=== PATIENT | male | born 1940 | race Caucasian/White ===

== ENCOUNTER → 2016-10-10 | Outpatient (CLI) | payer BC ==
[~2016-10-10] MED LIST: ACET-1325; ASPI-232 PO; FARXIGA PO; GLIM2TAB2 PO; HYDR12.55 PO; INSDGIPEN SC; LISI-790 PO; OFLO0.3S OP; PRED1SUS3; SIMV20TA2 PO; SITA50TA5 PO; ZNTT/150 PO
[2016-10-10 12:36] LABS: ESTIMATED AVERAGE GLUCOSE 163 mg/dl; HA1C FLAG Normal (Normal)
[2016-10-10 12:38] LABS: BLOOD UREA NITROGEN 23 mg/dl (7-18); BUN/CREATININE RATIO 25.4 (10-20); CALCIUM 9.6 mg/dl (8.5-10.1); CARBON DIOXIDE 25 mmol/L (21-32); CHLORIDE 100 mmol/L (98-107); CHOLESTEROL 131 mg/dl (0-200); CREATININE 0.89 mg/dl (0.60-1.40); GLUCOSE 159 mg/dl (70-99); POTASSIUM 4.3 mmol/L (3.5-5.1); SODIUM 133 mmol/L (136-145)
[2016-10-10 12:41] LABS: HDL CHOLESTEROL 33 mg/dl; LDL CHOLESTEROL CALCULATED 74 mg/dl; TRIGLYCERIDES 121 mg/dl (0-150); VERY LOW DENSITY LIPOPROT CALC 24 mg/dl
== END | disposition home or self-care (01) ==
LOC: C.LABPVFM 10:36
PROVIDERS: ATTEND Family Medicine
DX: E78.2 Mixed hyperlipidemia (principal); E11.9 Type 2 diabetes mellitus without complications

== ENCOUNTER → 2017-03-09 | Outpatient (CLI) | payer BC ==
[2017-03-09 17:33] LABS: BLOOD UREA NITROGEN 19 mg/dl (7-18); BUN/CREATININE RATIO 21.6 (10-20); CALCIUM 9.3 mg/dl (8.5-10.1); CARBON DIOXIDE 26 mmol/L (21-32); CHLORIDE 106 mmol/L (98-107); CREATININE 0.86 mg/dl (0.60-1.40); GLUCOSE 119 mg/dl (70-99); POTASSIUM 4.6 mmol/L (3.5-5.1); SODIUM 138 mmol/L (136-145)
[2017-03-10 05:51] LABS: ESTIMATED AVERAGE GLUCOSE 166 mg/dl; HA1C FLAG Normal (Normal)
== END | disposition home or self-care (01) ==
LOC: C.LABPVFM 11:30
PROVIDERS: ATTEND Family Medicine
DX: E11.9 Type 2 diabetes mellitus without complications (principal)

== ENCOUNTER 2017-03-15 02:57 | Observation (INO) | payer BC ==
[~2017-03-15] VITALS: Ht 185.4 cm; Wt 101.0 kg
[~2017-03-15 02:57] MED LIST changes: -ZNTT/150 PO
[2017-03-15 03:23] LABS: BASO % 0.8 %; BASO ABS # 0.06 K/uL (0-0.2); COMPLETE YES; EOS % 2.6 %; HEMATOCRIT 43.8 % (42-52); IG% 0.3 %; LYMPH % 29.5 %; LYMPH ABS # 2.25 K/uL (1.2-3.4); MEAN CORPUSCULAR HEMOGLOBIN 31.1 pg (25-34); MEAN CORPUSCULAR HGB CONC 34.9 g/dl (32-36); MEAN PLATELET VOLUME 10.8 fL (7.4-10.4); MONO % 11.9 %; NEUT % 54.9 %; PLATELET COUNT 187 K/uL (130-400); RED BLOOD COUNT 4.92 M/uL (4.7-6.1); WHITE BLOOD COUNT 7.62 K/uL (4.8-10.8)
[2017-03-15 03:45] LABS: ALKALINE PHOSPHATASE 60 U/L (45-117); ALT/SGPT 70 U/L (12-78); BLOOD UREA NITROGEN 24 mg/dl (7-18); CALCIUM 9.1 mg/dl (8.5-10.1); CARBON DIOXIDE 28 mmol/L (21-32); CHLORIDE 107 mmol/L (98-107); GLUCOSE 152 mg/dl (70-99)
[2017-03-15 04:14] LABS: AST/SGOT 115 U/L (15-37); BUN/CREATININE RATIO 24.8 (10-20); CREATININE 0.96 mg/dl (0.60-1.40); POTASSIUM 4.7 mmol/L (3.5-5.1); SODIUM 141 mmol/L (136-145)
--- NOTE | 2017-03-15 04:21 | EMERGENCY ROOM VISIT NOTE ---
History Report prepared by Jerryibzuleyma: Juaquin Alas Under the Supervision of: Dr. Marvin Delacruz D.O. First contact with patient: 02:59 Chief Complaint: CHEST PAIN Stated Complaint: CHEST PAIN History of Present Illness The patient is a 77 year old male who presents to the Emergency Room with complaints of resolved "sharp" left sided chest pain beginning just prior to arrival. Per EMS, the patient's pain began while sleeping. They state that the patient's pain was resolved with nitroglycerin. The patient states that his pain as a 10/10 in severity while present. He is not on any blood thinners. He states that he has an artificial heart valve that was placed three years ago. Source of History: patient Onset: Just prior to arrival Position: chest (left) Symptom Intensity: 10/10 while present Quality: sharp Timing: resolved Modifying Factors (Relieving): other (Nitroglycerin) Review of Systems See HPI for pertinent positives and negatives. A total of ten systems were reviewed and were otherwise negative. Past Medical & Surgical Medical Problems: (1) Aortic valvar stenosis Family History No pertinent family history stated. Social History Smoking Status: Never Smoker Marital Status: Occupation Status: retired Current/Historical Medications Scheduled Aspirin (Aspir-81), 81 MG PO QAM Glimepiride (Glimepiride), 2 MG PO BID Hydrochlorothiazide (Hydrochlorothiazide), 12.5 MG PO QAM Insulin Glargine (Lantus Solostar), 52 UNITS SC HS Lisinopril (Zestril), 5 MG PO QAM Simvastatin (Zocor), 20 MG PO QPM Sitagliptin-Metformin Hcl (Janumet), 1 TAB PO BID [Farxiga], 5 MG PO QAM Allergies Coded Allergies: No Known Allergies (Verified , `, 03/15/17) Physical Exam Vital Signs Date Time Temp Pulse Resp B/P (MAP) Pulse Ox O2 Delivery O2 Flow Rate FiO2 03/15/17 04:16 74 18 141/83 96 Room Air 03/15/17 03:04 77 03/15/17 03:01 36.7 82 18 151/75 96 Room Air Physical Exam GENERAL: Awake, alert, well-appearing, in no distress HENT: Normocephalic, atraumatic. Oropharynx unremarkable. EYES: Normal conjunctiva. Sclera non-icteric. NECK: Supple. No nuchal rigidity. FROM. No JVD. RESPIRATORY: Clear to auscultation. CARDIAC: Regular rate, normal rhythm. Extremities warm and well perfused. Pulses equal. ABDOMEN: Soft, non-distended. No tenderness to palpation. No rebound or guarding. No masses. RECTAL: Deferred. MUSCULOSKELETAL: Chest examination reveals no tenderness. Old sternotomy scar noted. The back is symmetrical on inspection without obvious abnormality. There is no CVA tenderness to palpation. No joint edema. LOWER EXTREMITIES: Calves are equal size bilaterally and non-tender. No edema. No discoloration. NEURO: Normal sensorium. No sensory or motor deficits noted. SKIN: No rash or jaundice noted. Medical Decision & Procedures ER Provider Diagnostic Interpretation: One View Chest X-ray interpreted by me: negative infiltrate. Negative pneumothorax. Laboratory Results 03/15/17 03:00 Red Blood Count 4.92, Mean Corpuscular Volume 89.0, Mean Corpuscular Hemoglobin 31.1, Mean Corpuscular Hemoglobin Concent 34.9, Mean Platelet Volume 10.8, Neutrophils (%) (Auto) 54.9, Lymphocytes (%) (Auto) 29.5, Monocytes (%) (Auto) 11.9, Eosinophils (%) (Auto) 2.6, Basophils (%) (Auto) 0.8, Neutrophils # (Auto ) 4.18, Lymphocytes # (Auto) 2.25, Monocytes # (Auto) 0.91, Eosinophils # (Auto ) 0.20, Basophils # (Auto) 0.06 03/15/17 03:00 Test 03/15/17 03:00 03/15/17 03:18 White Blood Count 7.62 K/uL (4.8-10.8) Red Blood Count 4.92 M/uL (4.7-6.1) Hemoglobin 15.3 g/dL (14.0-18.0) Hematocrit 43.8 % (42-52) Mean Corpuscular Volume 89.0 fL (80-100) Mean Corpuscular Hemoglobin 31.1 pg (25-34) Mean Corpuscular Hemoglobin Concent 34.9 g/dl (32-36) Platelet Count 187 K/uL (130-400) Mean Platelet Volume 10.8 fL (7.4-10.4) Neutrophils (%) (Auto) 54.9 % Lymphocytes (%) (Auto) 29.5 % Monocytes (%) (Auto) 11.9 % Eosinophils (%) (Auto) 2.6 % Basophils (%) (Auto) 0.8 % Neutrophils # (Auto) 4.18 K/uL (1.4-6.5) Lymphocytes # (Auto) 2.25 K/uL (1.2-3.4) Monocytes # (Auto) 0.91 K/uL (0.11-0.59) Eosinophils # (Auto) 0.20 K/uL (0-0.5) Basophils # (Auto) 0.06 K/uL (0-0.2) RDW Standard Deviation 41.2 fL (36.4-46.3) RDW Coefficient of Variation 12.7 % (11.5-14.5) Immature Granulocyte % (Auto) 0.3 % Immature Granulocyte # (Auto) 0.02 K/uL (0.00-0.02) Anion Gap 6.0 mmol/L (3-11) Est Creatinine Clear Calc Drug Dose 79.1 ml/min Estimated GFR () 87.4 Estimated GFR (Non- 75.4 BUN/Creatinine Ratio 24.8 (10-20) Calcium Level 9.1 mg/dl (8.5-10.1) Total Bilirubin 0.7 mg/dl (0.2-1) Direct Bilirubin mg/dl (0-0.2) Aspartate Amino Transf (AST/SGOT) 115 U/L (15-37) Alanine Aminotransferase (ALT/SGPT) 70 U/L (12-78) Alkaline Phosphatase 60 U/L (45-117) Total Protein 7.0 gm/dl (6.4-8.2) Albumin 3.5 gm/dl (3.4-5.0) Chemistry Specimen Hemolysis Bedside Troponin I < 0.030 ng/ml (0-0.045) Laboratory results reviewed by me ECG Indication: syncope Rate (beats per minute): 77 Rhythm: normal sinus Findings: RBBB, other (normal axis) ED Course 0300: The patient was evaluated in room B6. A complete history and physical exam was performed. 0242: Upon reexamination, the patient was resting comfortably. I discussed the test results and treatment plan with him. The patient will be evaluated for further management. Medical Decision Differential diagnosis: Etiologies such as cardiac ischemia, aortic dissection, pulmonary embolism, pneumonia, pneumothorax, musculoskeletal, infections, pericarditis, myocarditis , esophageal rupture, gastrointestinal, as well as others were entertained. Patient has a heart score of 3, patient received aspirin, case was discussed with hospitalist for admission. Patient remained stable condition with no current chest pain. I doubt thoracic aortic dissection or pulmonary embolism as presentation of his chest pain Consults Time Called: [phone] Consulting Physician: Dr. Puckett -[facility] [place] Returned Call: [phone] Discussed the patient's case. The patient will be evaluated for further treatment and disposition. Impression Primary Impression: Acute chest pain Scribe Attestation The scribe's documentation has been prepared under my direction and personally reviewed by me in its entirety. I confirm that the note above accurately reflects all work, treatment, procedures, and medical decision making performed by me. Departure Information Dispostion Being Evaluated By Hospitalist Referrals Aron Robles M.D. (PCP) Patient Instructions My [facility]
[2017-03-15] MEDS ORDERED: ALUMINUM/MAGNESIUM/SIMETH (MAALOX MAX) 30 ML UDC PO PRN (04:30)
[2017-03-15] MEDS ORDERED: MAGNESIUM HYDROXIDE SUSP 30 ML UDC PO PRN (04:30)
[2017-03-15] MEDS ORDERED: ZOLPIDEM TARTRATE 5 MG TAB PO PRN ×2 (04:30)
[2017-03-15] MEDS ORDERED: POLYETHYLENE (MIRALAX) 17 GM PACK PO PRN (04:30)
[2017-03-15] MEDS ORDERED: ACETAMINOPHEN 325 MG TAB PO PRN (04:30)
[2017-03-15] MEDS ORDERED: NITROGLYCERIN 0.4 MG SL PER TAB CHARGE SL PRN (04:30)
[2017-03-15] MEDS ORDERED: ONDANSETRON INJ 2 MG/ML 2 ML VIAL IV PRN (04:30)
--- NOTE | 2017-03-15 04:32 | History and Physical ---
History & Physical Date & Time of Service: Mar 15, 2017 at 04:13 Chief Complaint: Chest Pain Primary Care Physician: Aron Robles M.D. History of Present Illness Source: patient 77M with a PMHx of Aortic Valve Replacement 3 years ago, DM2 on insulin p/w a 20min episode of left sided chest pain that resolved in the ambulance on the way to the hospital after receiving ASA and nitro. Pt describes the pain as sharp and constant, no alleviated or made worse by any factors. The patient was not doing any activity when the pain came, he was just getting into bed. The pt has never had pain like this before. When solicited the pt feels that his may have been really severe heartburn because he was burning a lot immediately prior to this episode. The pt reports that the chest pain has completely resolved. ROS: No SOB, no dyspnea on exertion, no palpitations, no fevers, no chills, no nausea, no vomiting, no diarrhea, no dysuria, no rash. SHx: Non smoker, does not drink alcohol, denies any illicit substance use. Past Medical/Surgical History Medical Problems: (1) Aortic valvar stenosis Status: Chronic (2) Diabetes Mellitus (3) hypertension (4) hyperlipidemia Family History Noncontributory Social History Smoking Status: Never Smoker Smokeless Tobacco Use: No Alcohol Use: none Drug Use: none Marital Status: Housing status: lives with significant other Occupational Status: retired Immunizations History of Influenza Vaccine: Yes History of Tetanus Vaccine?: utd History of Pneumococcal: Yes History of Hepatitis B Vaccine: No Multi-Drug Resistant Organisms History of MDRO: No Allergies Coded Allergies: No Known Allergies (Verified , `, 03/15/17) Home Medications Scheduled Aspirin (Aspir-81), 81 MG PO QAM Glimepiride (Glimepiride), 2 MG PO BID Hydrochlorothiazide (Hydrochlorothiazide), 12.5 MG PO QAM Insulin Glargine (Lantus Solostar), 52 UNITS SC HS Lisinopril (Zestril), 5 MG PO QAM Ranitidine (Zantac), 150 MG PO BID Simvastatin (Zocor), 20 MG PO QPM Sitagliptin-Metformin Hcl (Janumet), 1 TAB PO BID [Farxiga], 5 MG PO QAM Review of Systems Constitutional: No fever, No chills Respiratory: No cough, No sputum, No wheezing, No shortness of breath, No dyspnea on exertion Cardiovascular: + chest pain Abdomen: No pain, No nausea, No vomiting, No diarrhea, No constipation Musculoskeletal: No joint pain Genitourinary - Male: No hematuria, No dysuria Endocrine: No fatigue Integumentary: No rash Physical Exam Vital Signs Date Time Temp Pulse Resp B/P (MAP) Pulse Ox O2 Delivery O2 Flow Rate FiO2 03/15/17 03:04 77 03/15/17 03:01 36.7 82 18 151/75 96 Room Air General Appearance: WD/WN, no apparent distress Eyes: PERRL, EOMI Respiratory/Chest: chest non-tender, lungs clear, normal breath sounds, no respiratory distress, no accessory muscle use Cardiovascular: regular rate, rhythm, no edema, no gallop, no JVD, normal peripheral pulses, + pertinent finding (systolic murmur) Abdomen/GI: normal bowel sounds, non tender, soft, no organomegaly, no pulsatile mass, + pertinent finding (cat scratch on abdomen) Back: no CVA tenderness Extremities/Musculoskelatal: normal inspection, no calf tenderness, normal capillary refill, no pedal edema Neurologic/Psych: grief counsellor II-XII nml as tested, alert, normal mood/affect, normal reflexes, oriented x 3 Skin: no rash Diagnostics Laboratory Results Results Past 24 Hours Test 03/15/17 03:00 03/15/17 03:18 Range/Units White Blood Count 7.62 4.8-10.8 K/uL Red Blood Count 4.92 4.7-6.1 M/uL Hemoglobin 15.3 14.0-18.0 g/dL Hematocrit 43.8 42-52 % Mean Corpuscular Volume 89.0 80-100 fL Mean Corpuscular Hemoglobin 31.1 25-34 pg Mean Corpuscular Hemoglobin Concent 34.9 32-36 g/dl Platelet Count 187 130-400 K/uL Mean Platelet Volume 10.8 7.4-10.4 fL Neutrophils (%) (Auto) 54.9 % Lymphocytes (%) (Auto) 29.5 % Monocytes (%) (Auto) 11.9 % Eosinophils (%) (Auto) 2.6 % Basophils (%) (Auto) 0.8 % Neutrophils # (Auto) 4.18 1.4-6.5 K/uL Lymphocytes # (Auto) 2.25 1.2-3.4 K/uL Monocytes # (Auto) 0.91 0.11-0.59 K/uL Eosinophils # (Auto) 0.20 0-0.5 K/uL Basophils # (Auto) 0.06 0-0.2 K/uL RDW Standard Deviation 41.2 36.4-46.3 fL RDW Coefficient of Variation 12.7 11.5-14.5 % Immature Granulocyte % (Auto) 0.3 % Immature Granulocyte # (Auto) 0.02 0.00-0.02 K/uL Sodium Level 140 136-145 mmol/L Chloride Level 107 98-107 mmol/L Carbon Dioxide Level 28 21-32 mmol/L Anion Gap 5.0 3-11 mmol/L Blood Urea Nitrogen 24 7-18 mg/dl BUN/Creatinine Ratio 23.8 10-20 Random Glucose 152 70-99 mg/dl Calcium Level 9.1 8.5-10.1 mg/dl Total Bilirubin 0.7 0.2-1 mg/dl Alanine Aminotransferase (ALT/SGPT) 70 12-78 U/L Alkaline Phosphatase 60 45-117 U/L Total Protein 7.0 6.4-8.2 gm/dl Albumin 3.5 3.4-5.0 gm/dl Bedside Troponin I < 0.030 0-0.045 ng/ml CXR normal EKG Rate (beats per minute): 77 Rhythm: normal sinus Findings: RBBB, other (normal axis) Impression Assessment and Plan 77M with a PMHx of Aortic Valve Replacement 3 years ago, DM2 on insulin p/w a 20min episode of left sided chest pain that resolved in the ambulance on the way to the hospital after receiving ASA and nitro. Echo ordered, Trops will be trended, observation on telemetry, cardiology (Dr. Grewal) consulted. Neuro: AAOx3, Pain control with Tylenol PRN. CV - Chest Pain * Symptoms have dissipated. * EKG showed RBBB. * Trop neg x 1. * Will order echo, appreciate cardiology recommendations, and trend troponins. Aortic Valve Replacement / HTN * continue with Acetazolamide, ASA, HCTZ 12.5mg daily, Lisinopril 5mg daily, Zocor 20mg QPM * Trend Troponins, CKMB, CK Q6H. * EKG AM daily. Resp - X-ray results showed no acute process. Renal - Creatinine Pending. GI/Diet - DM2 diet Endo - * DM2 - Hold oral DM2 meds, ISS + carb counting. * Electrolytes: Pending Heme - * Hgb and Platelets WNL. * DVT Proph: Hep SQ BID ID - Afebrile, WBC count normal. Continue to monitor with CBCs. Full Code Attending Addendum: I have physically seen and examined this patient, have supervised the medical residents activities, and agree with the H&P as noted above with the following exceptions: NONE The patient is awake, well-developed and adequately nourished, alert and oriented 3, normocephalic and atraumatic, lying in bed and in no acute distress. HEENT--PERRL, EOMI, mucous membranes and oropharynx normal. Neck--supple, no JVD or bruits, thyroid normal, trachea midline, no adenopathy. Heart--normal S1 and S2, no extra beats. Systolic murmur. No rubs or gallops. Lungs--clear bilaterally with good air movement, no respiratory distress, no accessory muscle use. Abdomen--normal bowel sounds and soft, nontender and nondistended, no hernias or masses, no organomegaly. Extremities--no cyanosis, clubbing or edema. There are good distal pulses b/l. Dermatologic--normal skin turgor, normal color, warm and dry, no abnormal lymph nodes, no rash. Neurologic--cranial nerves II through XII grossly intact. Rheumatologic--normal range of motion, nontender, muscles and joints. Psychiatric--normal affect. Assessment and Plan: 1. Status post aortic valve replacement/hypertension/precordial chest pain/ right bundle-branch block--The patient will be admitted to telemetry for serial cardiac enzymes, cardiac rhythm monitoring and a 2-D echocardiogram with Dopplers. Continue aspirin 81 mg by mouth every morning, HCTZ 12.5 mg by mouth every morning, lisinopril 5 mg by mouth every morning. Next 2. Diabetes mellitus--hold glimepiride 2 mg by mouth twice a day, and Janumet. Continue Lantus 52 units subcutaneous at bedtime. Place on Accu-Cheks before meals and at bedtime with NovoLog coverage per scale. 3. Hyperlipidemia--continue simvastatin 20 g by mouth every evening. Level of Care Telemetry Advanced Directives Existing Advance Directive: No Existing Living Will: No Existing Power of Senior Research Analyst: No Resuscitation Status FULL RESUSCITATION VTE Prophylaxis Given or contraindicated: SCD's Social Service Consult None Apply Resident Involvement: Resident Care Provided Care Provided: Adult Hospital Medicine
[2017-03-15 05:30] VITALS: BP 138/86; PULSE 58; TEMP 36.4; O2SAT 97; Ht 185.4 cm; Wt 101.0 kg
--- NOTE | 2017-03-15 05:59 | DIAGNOSTIC IMAGING REPORT ---
CHEST ONE VIEW PORTABLE CLINICAL HISTORY: CHEST PAIN dyspnea COMPARISON STUDY: 09/30/2013 FINDINGS: Interval median sternotomy. Minimal parenchymal infiltrative change left base. Lungs otherwise appear clear. Diaphragms are smooth. IMPRESSION: Minimal parenchymal infiltrate left base. The above report was generated using voice recognition software. It may contain grammatical, syntax or spelling errors. Electronically signed by: James Alvarado M.D. 03/15/2017 5:57 AM Dictated Date/Time: 03/15/2017 5:57 AM
[2017-03-15] MEDS ORDERED: IV FLUIDS COMPLETED PRN (06:45)
[2017-03-15] MEDS ORDERED: PERFLUTREN LIPID MICROSPHERE (DEFINITY) IV ONE (07:34)
[2017-03-15 07:47] LABS: INR 1.1 (0.9-1.1); PROTHROMBIN TIME (PATIENT) 11.3 SECONDS (9.0-12.0)
[2017-03-15 07:49] VITALS: BP 130/71; PULSE 66; TEMP 36.5; O2SAT 95
[2017-03-15 08:00] VITALS: O2SAT 95
[2017-03-15 08:20] LABS: CKMB/CK RATIO 2.3 (0-3.0)
[2017-03-15] MEDS ORDERED: ASPIRIN 81 MG ECTAB PO SCH (09:00)
[2017-03-15] MEDS ORDERED: HEPARIN SOD 5000 UNIT/0.5 ML CARP SQ SCH (09:00)
[2017-03-15] MEDS ORDERED: PANTOprazole SOD 40 MG TAB PO SCH (09:00)
[2017-03-15] MEDS ORDERED: LISINOPRIL 5 MG TAB PO SCH (09:00)
[2017-03-15] MEDS ORDERED: HYDROCHLOROTHIAZIDE 25 MG TAB PO SCH (09:00)
--- NOTE | 2017-03-15 10:17 | ECHOCARDIOGRAM REPORT ---
*NOTICE TO RECEIVING CONSTITUTION PARTY AGENCY This information is strictly Confidential and protected under [place] law. [place] law prohibits you from making any further disclosure of this information unless further disclosure is expressly permitted by the written consent of the person to whom it pertains or is authorized by law. A general authorization for the release of medical or other information is not sufficient for this purpose. Hospital accepts no responsibility if the information is made available to any other person, INCLUDING THE PATIENT. Interpretation Summary * Name: BRANDON MORALES Study Date: 03/15/2017 06:49 AM BP: 138/86 mmHg * Patient Location: C.2T\S\S238\S\1 HR: 66 * : 1940 (M/d/yyyy) Gender: Male Height: 73 in * Age: 77 yrs Ethnicity: CA Weight: 221 lb * Ordering Physician: James Puckett * Referring Physician: Self, Referred * Performed By: Fahad Cash RDCS * * Reason For Study: Chest pain * BSA: 2.2 m2 * -- Conclusions -- * There is mild concentric left ventricular hypertrophy. * Left ventricular systolic function is normal. * Grade I diastolic dysfunction, (abnormal relaxation pattern). * The left atrium is mildly dilated. * There is a bioprosthetic aortic valve. * The gradient is normal for this prosthetic aortic valve. * Right ventricular systolic pressure is normal. Procedure Details * A complete two-dimensional transthoracic echocardiogram was performed (2D, M-mode, Doppler and color flow Doppler). * The study was technically difficult. * The study was technically difficult, but visualization was adequate with the administration of Definity ultrasound contrast. * A contrast injection of Definity was performed to improve assessment of LV function. * Contrast was injected into an intravenous site in the left arm. * One vial of Definity ultrasound contrast was diluted in normal saline to a total volume of 10 ml. A total of '4' ml of solution was administered during imaging. * Lot # [id number] of Definity utilized for procedure. * Expiration date 1AUG18. * The attending nurse who injected the contrast agent was ANTHONY Mack. Left Ventricle * The left ventricle is normal in size. * There is mild concentric left ventricular hypertrophy. * Left ventricular systolic function is normal. * Grade I diastolic dysfunction, (abnormal relaxation pattern). * The left ventricular wall motion is normal. * No regional wall motion abnormalities noted. Right Ventricle * The right ventricle is normal in size and function. Atria * The left atrium is mildly dilated. * Right atrial size is normal. Mitral Valve * The mitral valve leaflets appear thickened, but open well. * There is no mitral valve stenosis. * There is no mitral regurgitation noted. Tricuspid Valve * The tricuspid valve anatomy is normal. * There is trace tricuspid regurgitation. * Right ventricular systolic pressure is normal. Aortic Valve * No hemodynamically significant valvular aortic stenosis. * There is no significant aortic regurgitation. * There is a bioprosthetic aortic valve. * The gradient is normal for this prosthetic aortic valve. * 23mm pericardial tissue valve Great Vessels * The aortic root is normal size. Pericardium/Pleural * There is no pericardial effusion. MMode 2D Measurements and Calculations IVSd 1.3 cm IVSs 1.6 cm LVIDd 3.6 cm LVIDs 2.5 cm LVPWd 1.3 cm LVPWs 1.6 cm IVS/LVPW 1.0 FS 30.1 % EDV(Teich) 55.4 ml ESV(Teich) 23.1 ml EF(Teich) 58.4 % EDV(cubed) 47.7 ml ESV(cubed) 16.3 ml EF(cubed) 65.9 % % IVS thick 19.6 % % LVPW thick 23.3 % LV mass(C)d 166.3 grams LV mass(C)dI 74.1 grams/m\S\2 LV mass(C)s 144.9 grams LV mass(C)sI 64.5 grams/m\S\2 SV(Teich) 32.3 ml SI(Teich) 14.4 ml/m\S\2 SV(cubed) 31.5 ml SI(cubed) 14.0 ml/m\S\2 EPSS 1.6 cm Ao root diam 3.9 cm Ao root area 12.1 cm\S\2 ACS 2.0 cm LA dimension 4.4 cm asc Aorta Diam 3.2 cm LA/Ao 1.1 LVOT diam 2.2 cm LVOT area 3.8 cm\S\2 LVAd ap4 20.7 cm\S\2 LVLd ap4 6.9 cm EDV(MOD-sp4) 50.3 ml LVAs ap4 13.5 cm\S\2 LVLs ap4 6.6 cm ESV(MOD-sp4) 23.0 ml EF(MOD-sp4) 54.3 % LVAd ap2 26.1 cm\S\2 LVLd ap2 8.6 cm EDV(MOD-sp2) 63.9 ml LVAs ap2 16.6 cm\S\2 LVLs ap2 7.6 cm ESV(MOD-sp2) 29.3 ml EF(MOD-sp2) 54.1 % SV(MOD-sp4) 27.3 ml SI(MOD-sp4) 12.2 ml/m\S\2 SV(MOD-sp2) 34.6 ml SI(MOD-sp2) 15.4 ml/m\S\2 Doppler Measurements and Calculations MV E max jarett 108.3 cm/sec MV A max jarett 123.0 cm/sec MV E/A 0.88 MV V2 max 127.6 cm/sec MV max PG 6.5 mmHg MV V2 mean 74.5 cm/sec MV mean PG 2.6 mmHg MV V2 VTI 48.0 cm MVA(VTI) 1.8 cm\S\2 MV dec time 0.25 sec Ao V2 max 209.9 cm/sec Ao max PG 17.6 mmHg Ao max PG (full) 13.2 mmHg Ao V2 mean 142.5 cm/sec Ao mean PG 9.4 mmHg Ao mean PG (full) 7.3 mmHg Ao V2 VTI 44.7 cm JN(I,A) 1.9 cm\S\2 JN(I,D) 1.9 cm\S\2 JN(V,A) 1.9 cm\S\2 JN(V,D) 1.9 cm\S\2 LV V1 max PG 4.5 mmHg LV V1 mean PG 2.1 mmHg LV V1 max 105.5 cm/sec LV V1 mean 66.8 cm/sec LV V1 VTI 22.4 cm SV(Ao) 541.4 ml SI(Ao) 241.2 ml/m\S\2 SV(LVOT) 86.0 ml SI(LVOT) 38.3 ml/m\S\2 PA V2 max 105.1 cm/sec PA max PG 4.4 mmHg PA acc slope 272.3 cm/sec\S\2 PA acc time 0.15 sec TR max jarett 240.3 cm/sec PA pr(Accel) 10.9 mmHg
[2017-03-15 11:40] VITALS: BP 120/74; PULSE 71; TEMP 36.5; O2SAT 96
[2017-03-15] MEDS ORDERED: ZNTT/150 PO (12:43)
--- NOTE | 2017-03-15 12:47 | Discharge Instructions ---
Discharge Instructions Date of Service Mar 15, 2017. Admission Reason for Admission: Acute Chest Pain Discharge Discharge Diagnosis / Problem: Chest pain Discharge Goals Goal(s): Diagnostic testing Activity Recommendations Activity Limitations: resume your previous activity Lifting Limitations: none Exercise/Sports Limitations: none May Resume Sexual Activity: when tolerated Shower/Bathe: no limitations Driving or Machine Use: resume 1 day after discharge . Instructions / Follow-Up Instructions / Follow-Up Take your Ranitidine (Zantac) twice daily rather than as needed until seen by Dr. Londono Return to the emergency room if you have further chest pain Do not eat 4 hours before bedtime Avoid spicey foods Avoid alcohol consumption Current Hospital Diet Patient's current hospital diet: Diabetes Type 2 Diet Discharge Diet Recommended Diet: AHA Diet (Heart Healthy), Diabetes Type 2 Diet Fluid Restriction: None Procedures Procedures Performed: None Pending Studies Studies pending at discharge: no Laboratory Results Hemoglobin A1c Test 03/09/17 11:35 Range/Units Estimated Average Glucose 166 mg/dl Hemoglobin A1c 7.4 H 4.5-5.6 % Medical Emergencies . Who to Call and When: Medical Emergencies: If at any time you feel your situation is an emergency, please call 911 immediately. . Non-Emergent Contact Non-Emergency issues call your: Primary Care Provider Call Non-Emergent contact if: you have a fever, your pain is unusual for you, your pain is concerning you, you have any medication questions . . "Provider Documentation" section prepared by Elvin Rowan. . VTE Core Measure Inpt VTE Proph given/why not?: Akilah PALOMARES Drug Monitoring Program Search Results: no issues identified
[2017-03-15 13:02] VITALS: BP 120/74; PULSE 71; TEMP 36.5; O2SAT 96
--- NOTE | 2017-03-15 13:08 | Discharge Summary ---
Discharge Summary Date of Service Mar 15, 2017. (Elvin Rowan PA-C) Discharge Summary Admission Date: Mar 15, 2017 at 04:24 Discharge Date: Mar 15, 2017 Discharge Disposition: Home Principal Diagnosis: Acute chest pain Problems/Secondary Diagnoses: Probable GERD Immunizations: Have You Had Influenza Vaccine: Yes History of Tetanus Vaccine?: utd History of Pneumococcal: Yes History of Hepatitis B Vaccine: No Procedures: None Consultations: None (Elvin Rowan PA-C) Medication Reconciliation New Medications: Ranitidine (Zantac) 150 Mg Tab 150 MG PO BID for 30 Days, #60 TAB Take twice daily Continued Medications: Aspirin (Aspir-81) 81 Mg Tab 81 MG PO QAM Glimepiride (Glimepiride) 2 Mg Tab 2 MG PO BID Hydrochlorothiazide (Hydrochlorothiazide) 12.5 Mg Tab 12.5 MG PO QAM Insulin Glargine (Lantus Solostar) 100 Unit/Ml Inj 52 UNITS SC HS Lisinopril (Zestril) 5 Mg Tab 5 MG PO QAM Simvastatin (Zocor) 20 Mg Tab 20 MG PO QPM, TAB Sitagliptin-Metformin Hcl (Janumet) 1 Tab Tab 1 TAB PO BID for 90 Days, #180 TAB 3 Refills [Farxiga] () 5 MG PO QAM Referrals At Discharge Follow up Referrals: Family Practice Referral - Within 1-2 Weeks @ [facility] [place]Department of Medicine with Dr. Londono Discharge Exam Vital Signs - as noted below Laboratory Data - as noted below Physical Exam: General - NAD Eyes - No icterus, gaze conjugate ENT - Mucosa moist, no lesions or candidiasis Neck - Supple, No JVD Lungs - No bronchospasm, rales, or rhonchi. No crepitus Heart - Regular, rate controlled Chest - Bowel sounds in the mid chest region. No tenderness to palpation. No ecchymosis. No paradoxical chest wall movement. Abdomen - Soft, NT, ND, BS present Extremities - No edema, pedal pulses intact. No calf pain. No varices. Neuro - A&OX3 Review of Systems: Constitutional: No fever, No chills, No sweats Respiratory: No cough, No sputum, No wheezing, No shortness of breath, No dyspnea on exertion, No dyspnea at rest, No hemoptysis Cardiovascular: No chest pain (since admission) Abdomen: + problem reported (increased belching), No pain, No nausea, No vomiting Musculoskeletal: No joint pain, No muscle pain Genitourinary - Male: No hematuria, No dysuria Neurologic: No weakness, No numbness/tingling, No vertigo Psychiatric: No problem reported Endocrine: No fatigue, No excessive thirst, No excessive urination Hematologic / Lymphatic: No abnormal bleeding/bruising, No clotting problems , No swollen lymph nodes, No night sweats Integumentary: No rash, No itch (Elvin Rowan PA-C) Hospital Course Patient admitted to the telemetry unit for observation secondary to acute chest pain. The patient reported having midsternal chest pain shortly after lying down for bed last evening. He reports eating a banana shortly before retiring for the night. He reports somewhat frequent acid reflux that is relieved with Tums or Zantac which he takes only as needed. Since arrival he has had no further chest pain or tightness. He denies n/v/d. He denies fever or chills. He tolerated breakfast this morning without difficulty or symptoms. He follows regularly with Dr. Grewal from [facility] [place] Cardiology and just had has regular appointment 2 weeks ago. He also foolows with Dr. Londono at [facility] and just had his annual appointment last week. During the patient's admission, he had no arrhythmias on telemetry, EKG was unchanged from prior and had no ST changes. Cardiac enzymes were negative. All other labs were reviewed and were negative. Patient will be discharged home and started on scheduled Ranitidine (Zantac) 150mg twice daily until further evaluated as an outpatient. I will leave this workup to Dr. Londono as he is familiar with Mr. Dockery. All other home medications were continued per his outpatient instructions. History & Physical Date & Time of Service: Mar 15, 2017 at 04:13 Chief Complaint: Chest Pain Primary Care Physician: Aron Robles M.D. History of Present Illness Source: patient 77M with a PMHx of Aortic Valve Replacement 3 years ago, DM2 on insulin p/w a 20min episode of left sided chest pain that resolved in the ambulance on the way to the hospital after receiving ASA and nitro. Pt describes the pain as sharp and constant, no alleviated or made worse by any factors. The patient was not doing any activity when the pain came, he was just getting into bed. The pt has never had pain like this before. When solicited the pt feels that his may have been really severe heartburn because he was burning a lot immediately prior to this episode. The pt reports that the chest pain has completely resolved. ROS: No SOB, no dyspnea on exertion, no palpitations, no fevers, no chills, no nausea, no vomiting, no diarrhea, no dysuria, no rash. SHx: Non smoker, does not drink alcohol, denies any illicit substance use. Past Medical/Surgical History Medical Problems: (1) Aortic valvar stenosis Status: Chronic Social History Smoking Status: Never Smoker Marital Status: Occupational Status: retired Immunizations History of Influenza Vaccine: Yes History of Tetanus Vaccine?: utd History of Pneumococcal: Yes History of Hepatitis B Vaccine: No Multi-Drug Resistant Organisms History of MDRO: No Allergies Coded Allergies: No Known Allergies (Verified , `, 04/16/16) Home Medications Scheduled Aspirin (Aspir-81), 81 MG PO QAM Glimepiride (Glimepiride), 2 MG PO BID Hydrochlorothiazide (Hydrochlorothiazide), 12.5 MG PO QAM Insulin Glargine (Lantus Solostar), 52 UNITS SC HS Lisinopril (Zestril), 5 MG PO QAM Simvastatin (Zocor), 20 MG PO QPM Sitagliptin-Metformin Hcl (Janumet), 1 TAB PO BID [Farxiga], 5 MG PO QAM Review of Systems Constitutional: No fever, No chills Respiratory: No cough, No sputum, No wheezing, No shortness of breath, No dyspnea on exertion Cardiovascular: + chest pain Abdomen: No pain, No nausea, No vomiting, No diarrhea, No constipation Musculoskeletal: No joint pain Genitourinary - Male: No hematuria, No dysuria Endocrine: No fatigue Integumentary: No rash Physical Exam Vital Signs Date Time Temp Pulse Resp B/P (MAP) Pulse Ox O2 Delivery O2 Flow Rate FiO2 03/15/17 03:04 77 03/15/17 03:01 36.7 82 18 151/75 96 Room Air General Appearance: WD/WN, no apparent distress Eyes: PERRL, EOMI Respiratory/Chest: chest non-tender, lungs clear, normal breath sounds, no respiratory distress, no accessory muscle use, + pertinent finding (midline scar over sternum, ) Cardiovascular: regular rate, rhythm, no edema, no gallop, no JVD, normal peripheral pulses, + pertinent finding (systolic murmur) Abdomen/GI: normal bowel sounds, non tender, soft, no organomegaly, no pulsatile mass, + pertinent finding (cat scratch on abdomen) Back: no CVA tenderness Extremities/Musculoskelatal: normal inspection, no calf tenderness, normal capillary refill, no pedal edema Neurologic/Psych: 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, alert, normal mood/affect, normal reflexes, oriented x 3 Skin: no rash Diagnostics Laboratory Results Results Past 24 Hours Test 03/15/17 03:00 03/15/17 03:18 Range/Units White Blood Count 7.62 4.8-10.8 K/uL Red Blood Count 4.92 4.7-6.1 M/uL Hemoglobin 15.3 14.0-18.0 g/dL Hematocrit 43.8 42-52 % Mean Corpuscular Volume 89.0 80-100 fL Mean Corpuscular Hemoglobin 31.1 25-34 pg Mean Corpuscular Hemoglobin Concent 34.9 32-36 g/dl Platelet Count 187 130-400 K/uL Mean Platelet Volume 10.8 7.4-10.4 fL Neutrophils (%) (Auto) 54.9 % Lymphocytes (%) (Auto) 29.5 % Monocytes (%) (Auto) 11.9 % Eosinophils (%) (Auto) 2.6 % Basophils (%) (Auto) 0.8 % Neutrophils # (Auto) 4.18 1.4-6.5 K/uL Lymphocytes # (Auto) 2.25 1.2-3.4 K/uL Monocytes # (Auto) 0.91 0.11-0.59 K/uL Eosinophils # (Auto) 0.20 0-0.5 K/uL Basophils # (Auto) 0.06 0-0.2 K/uL RDW Standard Deviation 41.2 36.4-46.3 fL RDW Coefficient of Variation 12.7 11.5-14.5 % Immature Granulocyte % (Auto) 0.3 % Immature Granulocyte # (Auto) 0.02 0.00-0.02 K/uL Sodium Level 140 136-145 mmol/L Chloride Level 107 98-107 mmol/L Carbon Dioxide Level 28 21-32 mmol/L Anion Gap 5.0 3-11 mmol/L Blood Urea Nitrogen 24 7-18 mg/dl BUN/Creatinine Ratio 23.8 10-20 Random Glucose 152 70-99 mg/dl Calcium Level 9.1 8.5-10.1 mg/dl Total Bilirubin 0.7 0.2-1 mg/dl Alanine Aminotransferase (ALT/SGPT) 70 12-78 U/L Alkaline Phosphatase 60 45-117 U/L Total Protein 7.0 6.4-8.2 gm/dl Albumin 3.5 3.4-5.0 gm/dl Bedside Troponin I < 0.030 0-0.045 ng/ml CXR normal EKG Rate (beats per minute): 77 Rhythm: normal sinus Findings: RBBB, other (normal axis) Impression Assessment and Plan 77M with a PMHx of Aortic Valve Replacement 3 years ago, DM2 on insulin p/w a 20min episode of left sided chest pain that resolved in the ambulance on the way to the hospital after receiving ASA and nitro. Echo ordered, Trops will be trended, observation on telemetry, cardiology (Dr. Grewal) consulted. Neuro: AAOx3, Pain control with Tylenol PRN. CV - Chest Pain * Symptoms have dissipated. * EKG showed RBBB. * Trop neg x 1. * Will order echo, appreciate cardiology recommendations, and trend troponins. Aortic Valve Replacement / HTN * continue with Acetazolamide, ASA, HCTZ 12.5mg daily, Lisinopril 5mg daily, Zocor 20mg QPM * Trend Troponins, CKMB, CK Q6H. * EKG AM daily. Resp - X-ray results showed no acute process. Renal - Creatinine Pending. GI/Diet - DM2 diet Endo - * DM2 - Hold oral DM2 meds, ISS + carb counting. * Electrolytes: Pending Heme - * Hgb and Platelets WNL. * DVT Proph: Hep SQ BID ID - Afebrile, WBC count normal. Continue to monitor with CBCs. Full Code Resident Involvement: Resident Care Provided Care Provided: Adult Hospital Medicine <Electronically signed by James Puckett MD> Signed: 03/15/17 9782 Total Time Spent: Greater than 30 minutes This includes examination of the patient, discharge planning, medication reconciliation, and communication with other providers. (Elvin Rowan PA-C) I agree with PA assessment and plan and have seen and examined pt myself Resting comfortably in bed Trop x 2 neg VSS Labs reviewed No ischemic changes on EKG Pt denies any further CP Likely atypical CP, with start on zantac on discharge F/U with PCP (Monroe Reardon D.OPasquale) Discharge Instructions Please refer to the electronic Patient Visit Report (Discharge Instructions) for additional information. (Elvin Rowan PA-C)
[2017-03-15] MEDS ORDERED: INSULIN GLARGINE SOLOSTAR 100 UNITS/ML 3 ML PEN SC SCH (21:00)
[2017-03-15] MEDS ORDERED: SIMVASTATIN 20 MG TAB PO SCH (21:00)
== END 2017-03-15 13:35 | disposition home or self-care (01) ==
LOC: EDBD 02:57 → C.EDB 02:58 → C.2T 04:24 → ENRESERV 05:06
PROVIDERS: ADMIT Hospitalist; ATTEND Hospitalist
DX: I35.8 Other nonrheumatic aortic valve disorders (principal); Z79.82 Long term (current) use of aspirin; E11.9 Type 2 diabetes mellitus without complications; Z79.4 Long term (current) use of insulin; Z79.84 Long term (current) use of oral hypoglycemic drugs; I10 Essential (primary) hypertension; E78.5 Hyperlipidemia, unspecified

== ENCOUNTER → 2017-09-07 | Outpatient (CLI) | payer BC ==
[~2017-09-07] MED LIST changes: -ACET-1325; -OFLO0.3S OP; -PRED1SUS3; +ZNTT/150 PO
[2017-09-07 12:27] LABS: HEMATOCRIT 46.4 % (42-52); HEMOGLOBIN 15.9 g/dL (14.0-18.0); MEAN CELL VOLUME 89.9 fL (80-100); MEAN CORPUSCULAR HEMOGLOBIN 30.8 pg (25-34); MEAN CORPUSCULAR HGB CONC 34.3 g/dl (32-36); MEAN PLATELET VOLUME 11.4 fL (7.4-10.4); PLATELET COUNT 212 K/uL (130-400); RED CELL DISTRIBUTION WIDTH CV 12.7 % (11.5-14.5); RED CELL DISTRIBUTION WIDTH SD 41.3 fL (36.4-46.3); WHITE BLOOD COUNT 7.14 K/uL (4.8-10.8)
[2017-09-07 12:42] LABS: HEMOGLOBIN A1C 7.4 % (4.5-5.6)
[2017-09-07 12:57] LABS: ALBUMIN 3.7 gm/dl (3.4-5.0); ALT/SGPT 26 U/L (12-78); AST/SGOT 15 U/L (15-37); BLOOD UREA NITROGEN 15 mg/dl (7-18); CALCIUM 8.8 mg/dl (8.5-10.1); CARBON DIOXIDE 28 mmol/L (21-32); CREATININE 0.93 mg/dl (0.60-1.40); GLUCOSE 156 mg/dl (70-99); POTASSIUM 4.6 mmol/L (3.5-5.1); SODIUM 135 mmol/L (136-145)
[2017-09-07 12:59] LABS: ALKALINE PHOSPHATASE 41 U/L (45-117); CHOLESTEROL 114 mg/dl (0-200); LDL CHOLESTEROL CALCULATED 59 mg/dl; TOTAL PROTEIN 7.4 gm/dl (6.4-8.2)
== END | disposition home or self-care (01) ==
LOC: C.LABPVFM 17:44
PROVIDERS: ATTEND Family Medicine
DX: R12 Heartburn (principal)

== ENCOUNTER → 2018-03-11 | Outpatient (CLI) | payer BC ==
[~2018-03-11] MED LIST changes: +RANI150T85 PO; -ZNTT/150 PO
[2018-03-11 13:16] LABS: ALBUMIN 3.6 gm/dl (3.4-5.0); ALKALINE PHOSPHATASE 54 U/L (45-117); ALT/SGPT 25 U/L (12-78); AST/SGOT 13 U/L (15-37); BLOOD UREA NITROGEN 20 mg/dl (7-18); CALCIUM 8.8 mg/dl (8.5-10.1); CARBON DIOXIDE 26 mmol/L (21-32); CHOLESTEROL 114 mg/dl (0-200); CREATININE 1.02 mg/dl (0.60-1.40); GLUCOSE 240 mg/dl (70-99); LDL CHOLESTEROL CALCULATED 51 mg/dl; POTASSIUM 4.5 mmol/L (3.5-5.1); SODIUM 136 mmol/L (136-145); TOTAL PROTEIN 7.6 gm/dl (6.4-8.2)
[2018-03-11 13:18] LABS: HEMOGLOBIN A1C 7.2 % (4.5-5.6)
== END | disposition home or self-care (01) ==
LOC: C.LABPVFM 09:34
PROVIDERS: ATTEND Family Medicine
DX: H61.21 Impacted cerumen, right ear (principal); E78.2 Mixed hyperlipidemia; E11.9 Type 2 diabetes mellitus without complications

== ENCOUNTER 2025-03-07 04:27 | Inpatient (IN) ==
[2025-03-07 05:03] LABS: Hematocrit (blood only) 39.2 % (42.0-52.0); Hemoglobin 13.4 g/dl (14.0-18.0); Immature Granulocytes # (auto) 0.06 K/uL (0.01-0.20); Immature Granulocytes % (auto) 0.5 %; Mean Corpuscular Hemoglobin 30.4 pg (25.0-34.0); Mean Corpuscular Volume 88.9 fL (80.0-100.0); Platelet Count 238 K/uL (130-400); RDW Standard Deviation 39.8 fL (36.4-46.3); Red Blood Count 4.41 M/uL (4.70-6.10); White Blood Count 11.47 K/ul (4.8-10.8)
[2025-03-07] MEDS: SODIUM CHLORIDE 0.9% 1,000 ML IV ONE (05:15)
[2025-03-07 05:21] LABS: Alanine Aminotransferase 12.0 U/L (7-52); Albumin Globulin Ratio 0.9 (0.9-2); Alkaline Phosphatase 53.0 U/L (34-104); Anion Gap 8.0 (3-11); Bilirubin,Total 0.6 mg/dl (0.2-1.0); Blood Urea Nitrogen 20.0 mg/dl (6-23); Calcium 9.3 mg/dl (8.6-10.3); Carbon Dioxide 26.0 mmol/L (21-32); Chloride 99.0 mmol/L (98-107); Creatinine Clr Calc Pharmacy 57.7 ml/min; Globulin 3.8 gm/dl (2.5-4.0); Glucose 183.0 mg/dl (70-99(Fasting)); Potassium 4.1 mmol/L (3.5-5.1); Sodium 133.0 mmol/L (136-145); Total Protein 7.2 gm/dl (6.0-8.3)
--- NOTE | 2025-03-07 06:07 | CT Scan Report ---
EXAM: CT head/brain wo con CLINICAL HISTORY: Fall, confusion TECHNIQUE: Multiple axial images are obtained from the skull base to the vertex without contrast. CT scan was performed according to ALARA (as low as reasonable achievable). COMPARISON: No FINDINGS: There is cerebral atrophy. No evidence of space occupying lesion, hemorrhage, edema, mass effect, midline shift, extra axial collection, or hydrocephalus is noted. Basal cisterns are symmetric and normal in size and configuration. There are scattered periventricular hypodensities as can be seen with chronic microvascular ischemic changes. The fatima-white matter differentiation is preserved. Visualized paranasal sinuses and mastoid air cells are well aerated. Orbital contents are within normal limits. Mild scalp hematoma over left parietal region. Bony structures are intact. IMPRESSION: 1. No evidence of acute intracranial abnormality is demonstrated. 2. Chronic microvascular ischemic changes. 3. Cerebral atrophy. Electronically signed by Tyrell Salinas 03-07-2025 06:06 AM
[2025-03-07 06:26] LABS: Appearance Urine Turbid (Clear); Bacteria Urine Automated 4+ (None Seen); Epithelial Cell Urine Auto 0-2 /hpf (0-2); Glucose Urine UA 3+ (Negative); RBC Urine Automated 0-2 /hpf (0-2); WBC Urine Automated >50 /hpf (0-5)
--- NOTE | 2025-03-07 06:29 | XRay Report ---
EXAM: XR chest 1V portable CLINICAL HISTORY: Pneumonia. TECHNIQUE: An X-ray image of the chest is obtained in AP projection. COMPARISON: Compared to prior CXR on 08/15/2024. FINDINGS: Pulmonary Parenchyma: New finding of right lower zone haziness, could be due to inflammatory changes. No pulmonary nodules are identified. No evidence of pleural effusion or pleural thickening. Heart and Mediastinum: Heart size and shape are normal. No mediastinal widening or masses. No hilar or mediastinal lymphadenopathy. Sternotomy metallic wires (prior procedure). Bony Thorax: Bony thorax appears intact without fractures or deformities. Soft Tissues: Soft tissues overlying the chest wall are unremarkable. IMPRESSION: Right lower zone haziness, which is more prominent compared to prior study could be due to inflammatory/ infectious process, clinical correlation needed. Electronically signed by Bunny Oropeza 03-07-2025 06:28 AM
[2025-03-07] MEDS: cefTRIAXone SODIUM 2,000 MG/50 ML BAG IV STA (06:38)
--- NOTE | 2025-03-07 06:42 | Emergency Department Note ---
Impression & Plan Pneumonia, UTI (urinary tract infection), Delirium ED Provider Note NAME: BRANDON MORALES AGE: 84 SEX: M : 1940 ARRIVES VIA: Ambulance INFORMANT: Patient, ED PROVIDER(S): Rigoberto Godoy MD CHIEF COMPLAINT: Fall out of bed, confusion HPI: This is a 84-year-old male presented for a fall out of his recliner. Patient presents recliner chair when he reportedly slid out. Patient's states he did not hit his head. Patient has a history of chronic UTIs and has been getting slowly worse over the past few days to weeks. He has had intermittent episodes of confusion. He asked normal and is very lucid and then confused without clear triggers. He is having increasing difficulty walking. Now having difficulty walking with walker or cane. He has a small open wound to his buttocks as well. No recent fevers are noted. No nausea or vomiting. No diarrhea. No abdominal pain or chest pain. No shortness of breath. ROS: See above HPI for pertinent positives & negatives. A total of 10 systems reviewed and were otherwise negative. PAST MEDICAL HISTORY: See Below PAST SURGICAL HISTORY: See Below FAMILY HISTORY: See Below SOCIAL HISTORY: See Below HOME MEDICATIONS: See Below ALLERGIES: See Below VITALS: See Below PHYSICAL EXAMINATION: General: resting comfortably in no acute distress, chronically unwell appearing Head: Normocephalic and atraumatic Eyes: Normal inspection, extraocular muscles intact Ear, nose, throat: Normal external exam Neck: Normal range of motion Respiratory: lungs clear to auscultation bilaterally Cardiovascular: Regular rate/rhythm, no murmur GI: soft, nontender, no guarding or rebound Extremities: nontender, moves all extremities Neuro: The patient awake and alert, appropriately conversive, no focal deficits, symmetric faces Skin: Warm, dry, and intact, stage II decubitus ulcer to the buttocks MEDICAL DECISION MAKING: This is a 84-year-old male presenting for fall out of recliner/confusion. Patient is currently awake, alert but not fully oriented. He does note the ulcer to his buttocks but otherwise has no current complaints. No external signs of trauma. - Will do screening head CT, blood work, chest x-ray and urinalysis - Bloodwork is reviewed showing no significant leukocytosis, anemia, electrolyte or creatinine abnormality - Chest x-ray reveals right lower lobe haziness concerning for inflammatory/infectious process - Urinalysis does show signs of UTI - Patient was initially tachycardic on arrival, after fluids he is downtrending. - Will give ceftriaxone and doxycycline at this time for pneumonia/UTI -Discussed care needs with who states that patient is having difficulty walking as well as increasing confusion. She states she cannot take care of at home at this time. She request inpatient stay. Differential diagnosis: Intracranial hemorrhage, UTI, pneumonia, sepsis Independent History obtained from: Diagnostics interpreted by me: ECG: None Cardiac Monitoring: An order was placed for continuous cardiac monitoring. The monitor shows a rate of 84 sinus rhythm. Past Med/Surg History Problem List (Updated 03/08/25 @ 04:40 by Rigoberto Godoy MD) Delirium (Acute) UTI (urinary tract infection) (Acute) Pneumonia (Acute) Hydronephrosis, left DVT prophylaxis S/P aortic valve replacement with bioprosthetic valve Acute metabolic encephalopathy Fall Decubitus ulcer of left buttock Decubitus ulcer of right buttock Skin ulcer of buttock Recurrent UTI (urinary tract infection) Cerumen impaction Uncontrolled diabetes mellitus, with long-term current use of insulin Controlled type 2 diabetes mellitus Incomplete bladder emptying Hematuria Risk for falls Poor balance Unsteady gait when walking Microalbuminuria Vitamin D deficiency Poor conditioning Paresthesia of both lower extremities Sensorineural hearing loss (SNHL) of both ears Mixed hyperlipidemia (Chronic) Hypertension (Chronic) BPH with obstruction/lower urinary tract symptoms (Acute) GERD (gastroesophageal reflux disease) Medical History (Updated 03/08/25 @ 04:40 by Rigoberto Godoy MD) Diabetes type 2 Arteriosclerotic cardiovascular disease Per records Poor historian Dorcas completed PAT phone interview Unsteady gait when walking "Very limited" uses a cane/walker Urinary tract infection Recurrent, taking Bactrim currently PAF (paroxysmal atrial fibrillation) Post-op atrial fibrillation 10/2013 Follows with [facility] cardio Hypertension BPH w urinary obs/LUTS GERD (gastroesophageal reflux disease) Hx of aortic valve stenosis Bioprosthetic AVR (2013) Hx of non-ST elevation myocardial infarction (NSTEMI) Entered 2013, denies Surgical History (Updated 03/07/25 @ 10:35 by Roverto Guerrero MD) Hx of transurethral resection of prostate 2012 + August 2024 Hx of cardiac catheterization History of surgery on arm As child, ? side Hx of aortic valve repair 2014 History of knee surgery R/L knee replacements (age ~54) History of back surgery Family History (Updated 03/07/25 @ 10:17 by Roverto Guerrero MD) Father , in his 70s Sepsis Mother , in her 70s Neurological disease Other No pertinent family history Denies family history of Ovarian cancer Prostate cancer Myocardial infarction Breast cancer Colorectal cancer Social History (Updated 03/07/25 @ 10:17 by Roverto Guerrero MD) Smoking Status: Never smoker Second Hand Exposure: No; Do You Dip or Chew Tobacco: No; Hx Alcohol Use: No Hx Substance Use: No Preferred Language: Ghanaian Communication Ability: Effective Visual Impairment: No Limitations Hearing Ability: Use of Hearing Aid Bronze Chaser Required: No Beliefs That Will Affect Care: None marital status: Current Living Situation: Spouse Current Living Situation Comment: [place] current occupational status: retired current occupation: worked at [employer] How many Children do You have: 2 Feels Safe at Home: Yes Childhood Exposure to Second-Hand Smoke: No Diet: regular caffeine: Yes during the past year weight has: remained stable Dental Care, Regularly: Yes Physical Activity Frequency: Does not Exercise Seatbelt Use: always Sunscreen Use: No Do you think of yourself as: straight/heterosexual Sexual Activity: has been sexually active, but not for at least 12 months Gender Identity: Male Assistive Devices: Cane, Glasses, Hearing Aid - Bilateral, Walker and Wheelchair Allergies Allergies Allergy/AdvReac Type Severity Reaction Status Date / Time sulfamethoxazole AdvReac Mild Abdominal Verified 01/27/25 13:22 [From Bactrim] Pain trimethoprim [From Bactrim] AdvReac Mild Abdominal Verified 01/27/25 13:22 Pain Home Meds Home Medications Medication Instructions Recorded Confirmed aspirin 81 mg tablet 0 mg PO DAILY 05/27/19 03/07/25 naproxen sodium 220 mg capsule 220 mg PO BID PRN Pain 10/02/21 03/07/25 (Aleve) blood sugar diagnostic (OneTouch 03/17/24 01/27/25 Ultra Test strips) semaglutide 1 mg/dose (4 mg/3 mL) 0 mg subcut .once weekly 08/08/24 03/07/25 subcutaneous pen injector pen needle, diabetic 29 gauge x 03/07/25 03/07/25 1/2" Previous Rx's Medication Instructions Recorded lancets 33 gauge (Impres MedicalTouch Delivette #100 ea 05/12/23 Plus Lancet) simvastatin 20 mg tablet 20 mg PO QPM #90 tabs 05/23/24 hydrochlorothiazide 12.5 mg capsule 12.5 mg PO QAM #90 caps 06/21/24 insulin glargine 100 unit/mL (3 105 unit (1.05 mL) subcut HS #45 mL 10/17/24 mL) subcutaneous pen (Lantus Solostar U-100 Insulin) metoprolol succinate 25 mg 25 mg PO QAM #90 tabs 10/25/24 tablet,extended release 24 hr blood sugar diagnostic (OneTouch #100 ea 11/17/24 Ultra Test strips) zinc oxide 10 % topical ointment 1 applic topical QID PRN skin 01/10/25 irritation #85 grams methenamine hippurate 1 gram tablet 1 g PO BID #180 tabs 01/27/25 gabapentin 300 mg capsule 300 mg PO BID #60 caps 01/31/25 metformin 1,000 mg tablet 1,000 mg PO BID #60 tabs 01/31/25 lisinopril 5 mg tablet 5 mg PO QAM #90 tabs 02/13/25 Results & Data (ED) Vital Signs Vital Signs - 24 hr 03/07/25 05:30 03/07/25 05:48 03/07/25 06:06 Pulse Rate 82 Pulse Rate [Apical] 84 Pulse Rhythm [Apical] Pulse Strength [Apical] Respiratory Rate 17 19 Respiratory Effort / Characteristics Non-Labored Spontaneous Respiratory Depth Normal Respiratory Pattern Regular Blood Pressure 119/68 Blood Pressure [Right Arm] 105/68 Blood Pressure Mean 95 Blood Pressure Mean [Right Arm] 80 Blood Pressure Position [Right Arm] Lying Pulse Oximetry 95 Oxygen Delivery Method Room Air 03/07/25 06:30 03/07/25 06:42 03/07/25 06:57 Pulse Rate 88 86 Pulse Rate [Apical] 88 Pulse Rhythm [Apical] Regular Pulse Strength [Apical] Normal Respiratory Rate 17 21 17 Respiratory Effort / Characteristics Non-Labored Spontaneous Respiratory Depth Normal Respiratory Pattern Blood Pressure Blood Pressure [Right Arm] 122/58 L Blood Pressure Mean Blood Pressure Mean [Right Arm] 79 Blood Pressure Position [Right Arm] Lying Pulse Oximetry 95 Oxygen Delivery Method Room Air 03/07/25 07:00 03/07/25 07:00 03/07/25 08:00 Pulse Rate 86 Pulse Rate [Apical] 84 Pulse Rhythm [Apical] Pulse Strength [Apical] Respiratory Rate 17 15 Respiratory Effort / Characteristics Non-Labored Spontaneous Respiratory Depth Normal Respiratory Pattern Regular Blood Pressure 119/78 118/72 Blood Pressure [Right Arm] 119/78 Blood Pressure Mean 98 87 Blood Pressure Mean [Right Arm] 91 Blood Pressure Position [Right Arm] Pulse Oximetry 96 96 Oxygen Delivery Method Room Air Room Air Laboratory Data 03/07/25 04:35 03/07/25 04:35 Lab Results 03/07/25 03/07/25 Range/Units 04:35 05:42 WBC 11.47 H (4.8-10.8) K/ul RBC 4.41 L (4.70-6.10) M/uL Hgb 13.4 L (14.0-18.0) g/dl Hct 39.2 L (42.0-52.0) % MCV 88.9 (80.0-100.0) fL MCH 30.4 (25.0-34.0) pg MCHC 34.2 (32.0-36.0) g/dL RDW Std Deviation 39.8 (36.4-46.3) fL RDW Coeff of [place] 12.1 (11.5-14.5) % Plt Count 238 (130-400) K/uL MPV 11.0 (9.4-12.4) fL Immature Gran % (Auto) 0.5 % Neut % (Auto) 68.6 % Lymph % (Auto) 12.9 % [place]arton % (Auto) 13.0 % Eos % (Auto) 4.2 % Baso % (Auto) 0.8 % Neut # (Auto) 7.87 H (1.40-6.50) K/uL Lymph # (Auto) 1.48 (1.20-3.40) K/uL [place]arton # (Auto) 1.49 H (0.11-0.59) K/uL Eos # (Auto) 0.48 (0.00-0.50) K/uL Baso # (Auto) 0.09 (0.00-0.20) K/uL Immature Gran # (Auto) 0.06 (0.01-0.20) K/uL PT 11.2 (9.0-12.0) Seconds INR 1.0 (0.9-1.1) Sodium 133 L (136-145) mmol/L Potassium 4.1 (3.5-5.1) mmol/L Chloride 99 (98-107) mmol/L Carbon Dioxide 26 (21-32) mmol/L Anion Gap 8 (3-11) BUN 20 (6-23) mg/dl Creatinine 1.18 (0.6-1.4) mg/dl Est Cr Clr Drug Dosing 57.7 ml/min eGFR 60.47 BUN/Creatinine Ratio 16.9 (10-20) Glucose 183 H (70-99(Fasting)) mg/dl Calcium 9.3 (8.6-10.3) mg/dl Magnesium 1.6 L (1.7-2.4) mg/dl Total Bilirubin 0.6 (0.2-1.0) mg/dl AST 15 (13-39) U/L ALT 12 (7-52) U/L Alkaline Phosphatase 53 (34-104) U/L Total Creatine Kinase 277 H (30-223) U/L Total Protein 7.2 (6.0-8.3) gm/dl Albumin 3.4 (3.4-5.0) gm/dl Globulin 3.8 (2.5-4.0) gm/dl Albumin/Globulin Ratio 0.9 (0.9-2) Urine Color Yellow Urine Appearance Turbid A (Clear) Urine pH 5.0 (4.5-7.5) Ur Specific [place] 1.013 (1.000-1.030) Urine Protein 1+ H (Negative) Urine Glucose (UA) 3+ H (Negative) Urine Ketones Trace H (Negative) Urine Blood 2+ H (Negative) Urine Nitrite Negative (Negative) Urine Bilirubin Negative (Negative) Urine Urobilinogen Negative (Negative) Ur Leukocyte Esterase 3+ H (Negative) Urine WBC (Auto) >50 H (0-5) /hpf Urine RBC (Auto) 0-2 (0-2) /hpf U Hyaline Cast (Auto) 11-20 H (0-2) /lpf U Epithel Cells (Auto) 0-2 (0-2) /hpf Urine Bacteria (Auto) 4+ H (None Seen) Urine Mucus Present A (None Prsent) Urine Comment Administered Medications Aspirin (Aspirin 81 Mg Ectab) 81 mg PO DAILY [facility] Stop: 04/06/25 10:59 Last Admin: 03/07/25 12:21 Dose: 81 mg Documented By: MINH Gabapentin (Gabapentin 300 Mg Cap) 300 mg PO BID [facility] Stop: 04/06/25 10:43 Last Admin: 03/07/25 20:20 Dose: 300 mg Documented By: Admin: 03/07/25 12:21 Dose: 300 mg Documented By: MINH Insulin Aspart (Insulin Aspart Per Unit Charge) 0 units SC ACHS [facility] Stop: 04/06/25 11:29 Last Admin: 03/07/25 20:20 Dose: 12 units Documented By: NILSON Co-signed By: STELLA Admin: 03/07/25 17:34 Dose: 335 units Documented By: MINH Co-signed By: ROSA Admin: 03/07/25 12:45 Dose: 12 units Documented By: MINH Co-signed By: ROSA Insulin Glargine (Lantus Per Unit Charge) 50 units SC HS [facility] Stop: 04/06/25 20:59 Last Admin: 03/07/25 20:20 Dose: 50 units Documented By: NILSON Co-signed By: STELLA Metoprolol Succinate (Metoprolol Succ 25mg Ext Rel Tab) 25 mg PO QAM [facility] Stop: 04/06/25 10:43 Last Admin: 03/07/25 12:21 Dose: 25 mg Documented By: MINH Nystatin (Nystatin Powder 15gm Btl) 1 appln EXT TID [facility] Stop: 04/06/25 10:43 Last Admin: 03/07/25 20:21 Dose: 1 appln Documented By: Admin: 03/07/25 14:19 Dose: Not Given Documented By: Admin: 03/07/25 14:18 Dose: 1 appln Documented By: MINH Discontinued Medications Sodium Chloride (Nss) 1,000 mls @ 999 mls/hr IV .Q1H1M ONE Stop: 03/07/25 06:10 Last Infusion: 03/07/25 06:22 Dose: Infused Documented By: Admin: 03/07/25 05:15 Dose: 999 mls/hr Documented By: KIKE Ceftriaxone Sodium (Rocephin) 2,000 mg in 50 mls @ 100 mls/hr IV NOW STA Stop: 03/07/25 06:59 Last Infusion: 03/07/25 07:18 Dose: Infused Documented By: Admin: 03/07/25 06:38 Dose: 100 mls/hr Documented By: KIKE Doxycycline Hyclate 100 mg/ (Dextrose) 100 mls @ 50 mls/hr IV Q12H JANAE Stop: 03/09/25 06:44 Last Infusion: 03/07/25 09:18 Dose: Infused Documented By: Admin: 03/07/25 07:18 Dose: 50 mls/hr Documented By: DAVID Magnesium Sulfate/Dextrose (Magnesium Sulfate / D5w) 1 gm in 100 mls @ 100 mls/hr IV Q1H JANAE Stop: 03/07/25 11:47 Last Infusion: 03/07/25 14:27 Dose: Infused Documented By: Admin: 03/07/25 13:24 Dose: 100 mls/hr Documented By: Infusion: 03/07/25 13:21 Dose: Infused Documented By: Admin: 03/07/25 12:21 Dose: 100 mls/hr Documented By: MINH Sodium Chloride (Nss) 1,000 mls @ 100 mls/hr IV .Q10H JANAE Stop: 03/07/25 20:43 Last Infusion: 03/07/25 22:08 Dose: Infused Documented By: Admin: 03/07/25 12:21 Dose: 100 mls/hr Documented By: MINH Ioversol (Optiray 320 100ml) 94 ml IV ONCE ONE Stop: 03/07/25 10:54 Last Admin: 03/07/25 10:54 Dose: 94 ml Documented By: PRIYA Imaging Data Radiologist's Impression: Head CT 03/07/25 04:32 EXAM: CT head/brain wo con CLINICAL HISTORY: Fall, confusion TECHNIQUE: Multiple axial images are obtained from the skull base to the vertex without contrast. CT scan was performed according to ALARA (as low as reasonable achievable). COMPARISON: No FINDINGS: There is cerebral atrophy. No evidence of space occupying lesion, hemorrhage, edema, mass effect, midline shift, extra axial collection, or hydrocephalus is noted. Basal cisterns are symmetric and normal in size and configuration. There are scattered periventricular hypodensities as can be seen with chronic microvascular ischemic changes. The fatima-white matter differentiation is preserved. Visualized paranasal sinuses and mastoid air cells are well aerated. Orbital contents are within normal limits. Mild scalp hematoma over left parietal region. Bony structures are intact. IMPRESSION: 1. No evidence of acute intracranial abnormality is demonstrated. 2. Chronic microvascular ischemic changes. 3. Cerebral atrophy. Electronically signed by Tyrell Salinas 03-07-2025 06:06 AM Chest X-Ray 03/07/25 04:50 EXAM: XR chest 1V portable CLINICAL HISTORY: Pneumonia. TECHNIQUE: An X-ray image of the chest is obtained in AP projection. COMPARISON: Compared to prior CXR on 08/15/2024. FINDINGS: Pulmonary Parenchyma: New finding of right lower zone haziness, could be due to inflammatory changes. No pulmonary nodules are identified. No evidence of pleural effusion or pleural thickening. Heart and Mediastinum: Heart size and shape are normal. No mediastinal widening or masses. No hilar or mediastinal lymphadenopathy. Sternotomy metallic wires (prior procedure). Bony Thorax: Bony thorax appears intact without fractures or deformities. Soft Tissues: Soft tissues overlying the chest wall are unremarkable. IMPRESSION: Right lower zone haziness, which is more prominent compared to prior study could be due to inflammatory/ infectious process, clinical correlation needed. Electronically signed by Bunny Oropeza 03-07-2025 06:28 AM Discharge Plan Visit Data Chief Complaint: Confusion Stated Complaint: SLID OUT OF CHAIR, MORE CONFUSED ?UTI ED Provider: Rigoberto Godoy Discharge Problem: Pneumonia, UTI (urinary tract infection), Delirium Patient Disposition: Admitted As Inpatient Condition: Fair Discharge Instructions Interventions: ED Discharge Assessment Last Done: 03/07/25 10:46 Discharge Problem: Pneumonia Qualifiers: Pneumonia type: due to unspecified organism Laterality: right Lung location: l ower lobe of lung Qualified Code(s): J18.9 - Pneumonia, unspecified organism UTI (urinary tract infection) Qualifiers: Urinary tract infection type: acute cystitis
[2025-03-07] MEDS: DOXYCYCLINE HYCLATE 100 MG in DEXTROSE 5% MINI-B 100 ML IV SCH (07:18)
--- NOTE | 2025-03-07 07:48 | History & Physical Report ---
Date of Service March 07, 2025 Assessment & Plan (1) Urinary tract infection: (2) Fall: (3) Acute metabolic encephalopathy: (4) Decubitus ulcer of right buttock: (5) Decubitus ulcer of left buttock: (6) Uncontrolled diabetes mellitus, with long-term current use of insulin: (7) Mixed hyperlipidemia: (8) Hypertension: (9) BPH with obstruction/lower urinary tract symptoms: (10) GERD (gastroesophageal reflux disease): (11) PAF (paroxysmal atrial fibrillation): (12) S/P aortic valve replacement with bioprosthetic valve: (13) DVT prophylaxis: Plan 84yo male with history of BPH s/p TURP 08/[address] Missael Gastelum (also had TURP in 2012), recurrent UTIs, HTN, T2DM, buttocks decubitus ulcer, GERD, h/o bioprosthetic aortic valve, and hyperlipidemia. The patient presented from home with his due to a fall the evening before admission, progressive weakness & ambulatory dysfunction, confusion and memory difficulties, concern for UTI, and overall failure to thrive. #urinary tract infection - -u/a suspicious for such; urine cx sent -s/p rocephin in the ER -previous urine cx's with proteus, group B strep, morganella - all sensitive to rocephin -will continue rocephin 2gm IV daily -taking methenamine for UTI prophy - place this on hold while on antibiotic therapy -at January 2025 urology visit there were plans for repeat CT abd/pelvis - will order such today; r/o obstructing pathology setting him up for UTIs, etc. #acute metabolic encephalopathy - -likely due to UTI -cannot exclude underlying cognitive impairment -check a B12 and TSH level tomorrow to be complete -avoid sedatives -preserve sleep-wake cycle, melatonin HS, etc. #fall - -suspect his weakness from the UTI contributed to the event -he has also developed ambulatory dysfunction & leg weakness over the last few weeks/months which would also heighten his fall risk -fortunately there does not appear to be any significant injury from the fall -CT head negative -plan PT/OT evals -check a B12 level in the setting of his ambulatory dysfunction #recurrent UTIs - -2nd to incomplete bladder emptying from his BPH? -2nd to prostatitis? -urinary incontinence will increase the risk of UTI -CT a/p with contrast ordered (this was being planned as outpatient by urology) -depending on the CT results consider urology consultation #BPH with TURP in 08/2024 - -consider alpha lizbet; suspect he is having incontinence from multiple factors including BPH #HTN - -cont meto succinate 25mg daily -hold lisinopril -hold HCTZ #?RLL pneumonia on chest x-ray - -CT of the abd/pelvis may provide additional information about the right lung base as we will be able to see this on CT -he is s/p rocephin/doxy in the ER -if no pneumonia on CT then just cont rocephin for the UTI #uncontrolled T2DM - -last Hba1c was 9.9% in October 2024 -plan another a1c tomorrow am -on a very large dose of lantus; will use reduced dose of 50 units at HS; if he remains high could go back to the amounts he uses at home by adding 50 units qam -novolog SSI - start with CF 30 and carb ratio 1:10 -BSGs ac/hs -hold metformin #hyperlipidemia - -cont statin -check CPK in light of fall #b/l buttock decubitus ulcers - -wound care consult requested -consider hernandez given his incontinence -frequent turning, barrier methods, etc. #?balanitis with severe scrotal irritation - -likely due to urinary incontinence & use of Depends adult diapers -nystatin powder TID to this region #DVT proph - -lovenox 40mg daily starting tomorrow PT, OT evals requested updated during the admissions process History of Present Illness Chief Complaint: fall, confusion, weakness, urinary incontinence Primary Care Provider: Ana Luisa Faustin MD 84yo male with history of BPH s/p TURP 08/[address] Missael Gastelum (also had TURP in 2013), recurrent UTIs, HTN, T2DM, buttocks decubitus ulcer, GERD, h/o bioprosthetic aortic valve, and hyperlipidemia. The patient presented from home with his due to a fall last evening, progressive weakness & ambulatory dysfunction, confusion and memory difficulties, concern for UTI, and overall failure to thrive. Most of the history was obtained from the patient's as the patient offered little in the way of history. About 3 weeks ago many of his symptoms started and have simply progressed over that time. Last evening he slid out of his lift chair onto the floor. There were no apparent injuries. His does state that he continues to drink fairly well day-to-day at home and is eating. No recent fevers or rigors. His last UTI was in January. He has had 3 UTIs since December. He was last seen by [facility] [place] [place] [facility] in January. They advised repeat CT abd/pelvis due to the recurrent UTIs. The patient did have a hernandez catheter this spring for about 3 months but this was successfully removed and he has been spontaneously voiding since then. However, he is incontinent of urine and wears Depends on a daily basis. With respect to the buttock decubitus ulcers - he has had these for at least 4-6 weeks. He did complain to me of pain from the ulcers during my admission assessment. Allergies Allergy/AdvReac Type Severity Reaction Status Date / Time sulfamethoxazole AdvReac Mild Abdominal Verified 01/27/25 13:22 [From Bactrim] Pain trimethoprim [From Bactrim] AdvReac Mild Abdominal Verified 01/27/25 13:22 Pain Home Medications Medication Instructions Recorded Confirmed Type aspirin 81 mg tablet 0 mg PO DAILY 05/27/19 03/07/25 History naproxen sodium 220 mg capsule 220 mg PO BID PRN Pain 10/02/21 03/07/25 History (Josiah) lancets 33 gauge ([facility] #100 ea 05/12/23 01/27/25 Rx Plus Lancet) blood sugar diagnostic ([facility] 03/17/24 01/27/25 History Ultra Test strips) simvastatin 20 mg tablet 20 mg PO QPM #90 tabs 05/23/24 03/07/25 Rx hydrochlorothiazide 12.5 mg capsule 12.5 mg PO QAM #90 caps 06/21/24 03/07/25 Rx semaglutide 1 mg/dose (4 mg/3 mL) 0 mg subcut .once weekly 08/08/24 03/07/25 History subcutaneous pen injector insulin glargine 100 unit/mL (3 105 unit (1.05 mL) subcut HS #45 mL 10/17/24 03/07/25 Rx mL) subcutaneous pen (Lantus Solostar U-100 Insulin) metoprolol succinate 25 mg 25 mg PO QAM #90 tabs 10/25/24 03/07/25 Rx tablet,extended release 24 hr blood sugar diagnostic ([facility] #100 ea 11/17/24 01/27/25 Rx Ultra Test strips) zinc oxide 10 % topical ointment 1 applic topical QID PRN skin 01/10/25 03/07/25 Rx irritation #85 grams methenamine hippurate 1 gram tablet 1 g PO BID #180 tabs 01/27/25 03/07/25 Rx gabapentin 300 mg capsule 300 mg PO BID #60 caps 01/31/25 03/07/25 Rx metformin 1,000 mg tablet 1,000 mg PO BID #60 tabs 01/31/25 03/07/25 Rx lisinopril 5 mg tablet 5 mg PO QAM #90 tabs 02/13/25 03/07/25 Rx pen needle, diabetic 29 gauge x 03/07/25 03/07/25 History 1/2" Past Med/Surg History Problem List (Updated 03/07/25 @ 15:06 by KSENIA Jameson) Hydronephrosis, left DVT prophylaxis S/P aortic valve replacement with bioprosthetic valve Acute metabolic encephalopathy Fall Decubitus ulcer of left buttock Decubitus ulcer of right buttock Skin ulcer of buttock Recurrent UTI (urinary tract infection) Cerumen impaction Uncontrolled diabetes mellitus, with long-term current use of insulin Controlled type 2 diabetes mellitus Incomplete bladder emptying Hematuria Risk for falls Poor balance Unsteady gait when walking Microalbuminuria Vitamin D deficiency Poor conditioning Paresthesia of both lower extremities Sensorineural hearing loss (SNHL) of both ears Mixed hyperlipidemia (Chronic) Hypertension (Chronic) BPH with obstruction/lower urinary tract symptoms (Acute) GERD (gastroesophageal reflux disease) Medical History (Updated 03/07/25 @ 15:06 by KSENIA Jameson) Diabetes type 2 Arteriosclerotic cardiovascular disease Per records Poor historian Dorcas completed PAT phone interview Unsteady gait when walking "Very limited" uses a cane/walker Urinary tract infection Recurrent, taking Bactrim currently PAF (paroxysmal atrial fibrillation) Post-op atrial fibrillation 10/2013 Follows with [facility] cardio Hypertension BPH w urinary obs/LUTS GERD (gastroesophageal reflux disease) Hx of aortic valve stenosis Bioprosthetic AVR (2013) Hx of non-ST elevation myocardial infarction (NSTEMI) Entered 2013, denies Surgical History (Updated 03/07/25 @ 10:35 by Roverto Guerrero MD) Hx of transurethral resection of prostate 2012 + August 2024 Hx of cardiac catheterization History of surgery on arm As child, ? side Hx of aortic valve repair 2013 History of knee surgery R/L knee replacements (age ~54) History of back surgery Family History (Updated 03/07/25 @ 10:17 by Roverto Guerrero MD) Father , in his 70s Sepsis Mother , in her 70s Neurological disease Other No pertinent family history Denies family history of Ovarian cancer Prostate cancer Myocardial infarction Breast cancer Colorectal cancer Social History (Updated 03/07/25 @ 10:17 by Roverto Guerrero MD) Smoking Status: Never smoker Second Hand Exposure: No; Do You Dip or Chew Tobacco: No; Hx Alcohol Use: No Hx Substance Use: No Preferred Language: Kiswahili Communication Ability: Effective Visual Impairment: No Limitations Hearing Ability: Use of Hearing Aid Aids Social Worker Required: No Beliefs That Will Affect Care: None marital status: Current Living Situation: Spouse Current Living Situation Comment: [place] current occupational status: retired current occupation: worked at [email or web address] How many Children do You have: 2 Feels Safe at Home: Yes Childhood Exposure to Second-Hand Smoke: No Diet: regular caffeine: Yes during the past year weight has: remained stable Dental Care, Regularly: Yes Physical Activity Frequency: Does not Exercise Seatbelt Use: always Sunscreen Use: No Do you think of yourself as: straight/heterosexual Sexual Activity: has been sexually active, but not for at least 12 months Gender Identity: Male Assistive Devices: Cane, Glasses, Hearing Aid - Bilateral, Walker and Wheelc hair Review of Systems Review of Systems: gen - no fevers, no chills; still eating/drinking eyes - no recent visual changes HENT - no recent URI symptoms; no dysphagia CV - no chest pain pulm - minimal cough intermittently; no dyspnea; no BUTLER; no wheezing GI - no abd pain, N/V/diarrhea; no melena; no BRBPR - incontinent; scrotum/penis with irritation musculo - no c/o joint pain skin - no rashes but does have buttock decubitus ulcers b/l neuro - no headache; progressive leg weakness b/l; no paresthesias endo - does not check his BSGs psych - ongoing memory difficulties Physical Exam Physical Exam: gen - lying in bed comfortably, does not participate spontaneously in the conversation, disheveled eyes - PERRL, pupils 2mm b/l HENT - TMs clear b/l, nose clear, mouth with dry MM; poor dentition neck - no JVD, no lymph nodes heart - RRR, s1 s2, no murmur lungs - focal dry rales right base, otherwise CTA b/l abd - soft, NT, ND, BS+, no HSM; no flank tenderness ext - no edema, pulses 2+ b/l feet; left arm deformity (chronic per his ) neuro - no facial droop; increased tone in his extremities?; masked facies?; strength 5/5 x 4 exts although handgrip on left is 4/5 with muscle atrophy; DTRs 2+ b/l skin - b/l TKR scars knee; sternal scar; no generalized rash; bruise abdominal wall; at least stage 2 sacral decub on right upper buttock; stage 1-2 ulcerations left upper buttock; balanitis of penile shaft/head?; scrotum erythematous and quite irritated psych - oriented to person, not place, but knew it was February 2025 and [birth year] birthday was tomorrow Results & Data Results & Data Vital Signs (Past 12 Hours) Vital Signs Temp Pulse Pulse Resp BP BP Pulse Ox 03/07/25 07:00 84 17 119/78 96 03/07/25 06:30 88 17 122/58 L 95 03/07/25 05:30 84 17 105/68 95 03/07/25 04:32 36.7 C 105 H 19 120/68 92 03/07/25 04:32 105 H O2 Del Method 03/07/25 07:00 Room Air 03/07/25 06:30 Room Air 03/07/25 05:30 Room Air 03/07/25 04:32 Room Air 03/07/25 04:32 Laboratory Results Laboratory Results - last 24 hr 03/07/25 03/07/25 03/07/25 04:35 05:42 09:24 WBC 11.47 H RBC 4.41 L Hgb 13.4 L Hct 39.2 L MCV 88.9 MCH 30.4 MCHC 34.2 RDW Std Deviation 39.8 RDW Coeff of [place] 12.1 Plt Count 238 MPV 11.0 Immature Gran % (Auto) 0.5 Neut % (Auto) 68.6 Lymph % (Auto) 12.9 [place] % (Auto) 13.0 Eos % (Auto) 4.2 Baso % (Auto) 0.8 Neut # (Auto) 7.87 H Lymph # (Auto) 1.48 [place] # (Auto) 1.49 H Eos # (Auto) 0.48 Baso # (Auto) 0.09 Immature Gran # (Auto) 0.06 Sodium 133 L Potassium 4.1 Chloride 99 Carbon Dioxide 26 Anion Gap 8 BUN 20 Creatinine 1.18 Est Cr Clr Drug Dosing 57.7 eGFR 60.47 BUN/Creatinine Ratio 16.9 Glucose 183 H POC Glucose Calcium 9.3 Magnesium 1.6 L Total Bilirubin 0.6 AST 15 ALT 12 Alkaline Phosphatase 53 Total Creatine Kinase Pending Total Protein 7.2 Albumin 3.4 Globulin 3.8 Albumin/Globulin Ratio 0.9 Urine Color Yellow Urine Appearance Turbid A Urine pH 5.0 Ur Specific [place] 1.013 Urine Protein 1+ H Urine Glucose (UA) 3+ H Urine Ketones Trace H Urine Blood 2+ H Urine Nitrite Negative Urine Bilirubin Negative Urine Urobilinogen Negative Ur Leukocyte Esterase 3+ H Urine WBC (Auto) >50 H Urine RBC (Auto) 0-2 U Hyaline Cast (Auto) 11-20 H U Epithel Cells (Auto) 0-2 Urine Bacteria (Auto) 4+ H Urine Mucus Present A Urine Comment SARS-CoV-2 (PCR) NEGATIVE Influenza Type A (PCR) Negative Influenza Type B (PCR) Negative RSV (RT-PCR) Negative 03/07/25 10:03 WBC RBC Hgb Hct MCV MCH MCHC RDW Std Deviation RDW Coeff of [place] Plt Count MPV Immature Gran % (Auto) Neut % (Auto) Lymph % (Auto) [place] % (Auto) Eos % (Auto) Baso % (Auto) Neut # (Auto) Lymph # (Auto) [place] # (Auto) Eos # (Auto) Baso # (Auto) Immature Gran # (Auto) Sodium Potassium Chloride Carbon Dioxide Anion Gap BUN Creatinine Est Cr Clr Drug Dosing eGFR BUN/Creatinine Ratio Glucose POC Glucose 277 H Calcium Magnesium Total Bilirubin AST ALT Alkaline Phosphatase Total Creatine Kinase Total Protein Albumin Globulin Albumin/Globulin Ratio Urine Color Urine Appearance Urine pH Ur Specific [place] Urine Protein Urine Glucose (UA) Urine Ketones Urine Blood Urine Nitrite Urine Bilirubin Urine Urobilinogen Ur Leukocyte Esterase Urine WBC (Auto) Urine RBC (Auto) U Hyaline Cast (Auto) U Epithel Cells (Auto) Urine Bacteria (Auto) Urine Mucus Urine Comment SARS-CoV-2 (PCR) Influenza Type A (PCR) Influenza Type B (PCR) RSV (RT-PCR) Diagnostic Findings Head CT 03/07/25 04:32 EXAM: CT head/brain wo con CLINICAL HISTORY: Fall, confusion TECHNIQUE: Multiple axial images are obtained from the skull base to the vertex without contrast. CT scan was performed according to ALARA (as low as reasonable achievable). COMPARISON: No FINDINGS: There is cerebral atrophy. No evidence of space occupying lesion, hemorrhage, edema, mass effect, midline shift, extra axial collection, or hydrocephalus is noted. Basal cisterns are symmetric and normal in size and configuration. There are scattered periventricular hypodensities as can be seen with chronic microvascular ischemic changes. The fatima-white matter differentiation is preserved. Visualized paranasal sinuses and mastoid air cells are well aerated. Orbital contents are within normal limits. Mild scalp hematoma over left parietal region. Bony structures are intact. IMPRESSION: 1. No evidence of acute intracranial abnormality is demonstrated. 2. Chronic microvascular ischemic changes. 3. Cerebral atrophy. Electronically signed by Tyrell Salinas 03-07-2025 06:06 AM Chest X-Ray 03/07/25 04:50 EXAM: XR chest 1V portable CLINICAL HISTORY: Pneumonia. TECHNIQUE: An X-ray image of the chest is obtained in AP projection. COMPARISON: Compared to prior CXR on 08/15/2024. FINDINGS: Pulmonary Parenchyma: New finding of right lower zone haziness, could be due to inflammatory changes. No pulmonary nodules are identified. No evidence of pleural effusion or pleural thickening. Heart and Mediastinum: Heart size and shape are normal. No mediastinal widening or masses. No hilar or mediastinal lymphadenopathy. Sternotomy metallic wires (prior procedure). Bony Thorax: Bony thorax appears intact without fractures or deformities. Soft Tissues: Soft tissues overlying the chest wall are unremarkable. IMPRESSION: Right lower zone haziness, which is more prominent compared to prior study could be due to inflammatory/ infectious process, clinical correlation needed. Electronically signed by Bunny Oropeza 03-07-2025 06:28 AM Code Status & VTE Plan Code Status full code PG Care Time/CCT Total # of Minutes Spent Total Time Spent with Patient: Total time spent is greater than 50% in coordination of care (as documented) at patient's floor/unit and/or counseling patient: Coding Level of Care Code 05348 INT INP/OBS CARE 3/75MIN Diagnoses Urinary tract infection N39.0 Fall W19.XXXA Acute metabolic encephalopathy G93.41 Decubitus ulcer of right buttock L89.319 Decubitus ulcer of left buttock L89.329 Uncontrolled diabetes mellitus, with long-term current use of insulin Mixed hyperlipidemia E78.2 Primary hypertension I10 Hypertension type: primary hypertension BPH with obstruction/lower urinary tract symptoms N40.1; N13.8 GERD (gastroesophageal reflux disease) K21.9 PAF (paroxysmal atrial fibrillation) I48.0 S/P aortic valve replacement with bioprosthetic valve Z95.3 DVT prophylaxis Z29.9 (8) Hypertension Hypertension type: primary hypertension Qualified Code(s): I10 - Essential (primary) hypertension
[2025-03-07 09:43] LABS: Magnesium 1.6 mg/dl (1.7-2.4)
[2025-03-07 10:14] LABS: Influenza A virus by PCR Negative (Neg); Influenza B virus by PCR Negative (Neg); SARS CoV2 RNA(COVID-19) Ceph NEGATIVE (Negative)
[2025-03-07 10:33] LABS: Creatine Kinase 277.0 U/L (30-223)
[2025-03-07] MEDS ORDERED: ONDANSETRON INJ 2 MG/ML 2 ML VIAL IV PRN (10:44)
[2025-03-07] MEDS ORDERED: MELATONIN 3 MG TAB PO PRN (10:44)
[2025-03-07] MEDS ORDERED: ACETAMINOPHEN 325 MG TAB PO PRN (10:44)
[2025-03-07] MEDS: OPTIRAY 320 100ml IV ONE (10:54)
[2025-03-07 11:00] LABS: INR 1.0 (0.9-1.1); Prothrombin Time 11.2 Seconds (9.0-12.0)
--- NOTE | 2025-03-07 11:22 | CT Scan Report ---
ABDOMEN AND PELVIS CT WITH IV CONTRAST CT DOSE: 1501.05 mGy.cm HISTORY: Acute urinary tract infection with possible pneumonia . Sacral ulcer. recurrent UTIs, ?RLL p neumonia TECHNIQUE: Multiaxial CT images of the abdomen and pelvis were performed following the IV administrat ion of 94 cc of Optiray, A dose lowering technique was utilized adhering to the principles of ALARA. COMPARISON STUDY: Chest x-ray same day, CT abdomen and pelvis 06/30/2024 FINDINGS: Cardiomegaly with median sternotomy and prosthetic aortic valve. Extensive coronary artery calcifications. Mild bibasilar atelectasis/scarring. No pneumatosis or pneumoperitoneum. Unremarkable spleen, mildly atrophic pancreas and adrenal glands. Cholelithiasis without CT evidence of acute cho lecystitis. Unremarkable liver. Patent portal vein. Small right-sided renal cysts again noted. Complex 3 cm cyst in the inferior pole left kidney again n oted. There is moderate left-sided hydroureteronephrosis with perinephric stranding. No obstructing u reteral calculus or lesion identified. Distended urinary bladder with trabecular circumferential wall thickening, perivesicular stranding with small diverticula. Mildly enlarged prostate. Possible TURP defect. Atherosclerosis of the aorta and branch vessels. No lymphadenopathy. No bowel obstruction or bowel wall thickening. Colonic diverticulosis. Moderate colonic fecal retenti on. Unremarkable soft tissues. No sacral ulcer identified. No acute fracture. No bony erosions or balta picious bone lesions. IMPRESSION: 1. Mild prostamegaly with evidence of chronic outlet obstruction and possible superimposed cystitis. Correlate with urinalysis. 2. Asymmetric moderate left-sided hydroureteronephrosis without obstructing calculus or lesion may al so be secondary to the outlet obstruction. Correlate with urinalysis. 3. Unchanged 3 cm complex left renal cyst. 4. Cholelithiasis. 5. Colonic diverticulosis. ACT 112: Negative or not required by law. The above report was generated using voice recognition software. It may contain grammatical, syntax o r spelling errors. Electronically signed by: Buddy Jiménez M.D. 03/07/2025 11:20 AM
[2025-03-07] MEDS: SODIUM CHLORIDE 0.9% 1,000 ML IV SCH (12:21)
[2025-03-07] MEDS: ASPIRIN 81 MG ECTAB PO SCH (12:21)
[2025-03-07] MEDS: GABAPENTIN 300 MG CAP PO SCH (12:21)
[2025-03-07] MEDS: METOPROLOL SUCC 25MG EXT REL TAB PO SCH (12:21)
[2025-03-07] MEDS: MAGNESIUM SULFATE / D5W 1 GM/100 ML BAG IV SCH (12:21)
[2025-03-07] MEDS: INSULIN ASPART PER UNIT CHARGE SC SCH (12:45)
[2025-03-07] MEDS: NYSTATIN POWDER 15GM BTL EXT SCH (14:18)
--- NOTE | 2025-03-07 14:28 | Urology Consultation ---
<Statement entered by Ambrocio Costa MD - 03/07/25 16:36> 84-year-old male with UTI, incomplete bladder emptying/urinary retention now managed with indwelling catheter in place. CT scan demonstrating hydronephrosis on the left side without any focal obstruction such as a stone. We will hold off ureteral stent placement for now, however if he fails to improve clinically, could revisit possibility of stent placement. Would maintain Weaver catheter. Agree with broad-spectrum antibiotics, narrowing as culture data becomes available. Date of Consultation March 07, 2025 Assessment & Plan (1) Urinary tract infection: (2) Hydronephrosis, left: (3) BPH with obstruction/lower urinary tract symptoms: Plan 84yo male with a hx of BPH s/p TURP 08/2024 and recurrent UTI admitted with progressive weakness, confusion, and concern for UTI. Pt afebrile with stable vitals at present. Labs showed mild leukocytosis of 11.47 and normal renal function. Urine culture pending. He is on Ceftriaxone. Weaver catheter placed today and draining appropriately - urine is clear yellow. CT abd pelvis showed moderate left-sided hydronephrosis without obstructing stone or lesion possibly due to outlet obstruction, reflux, infection or other. For now, would recommend continuing antibiotic therapy and tailoring per culture sensitivities. Maintain Weaver catheter for bladder decompression. Continue supportive care. No plan for intervention at this time. If patient is not improving, develops fever/acute changes, or severe pain, we can revisit ureteral stent placement. Urology will follow. History of Present Illness Attending Physician: Roverto Guerrero MD History of Present Illness 84-year-old male with a history of BPH s/p TURP 08/[address] Gastelum (also had TURP in 2012) and recurrent UTI who presented to the ED on 03/07 due to a fall at home, progressive weakness, ambulatory dysfunction and concern for UTI. On arrival he was afebrile hemodynamically stable. Labs showing a mild leukocytosis of 11.47 and normal renal function. Urinalysis showed 2+ blood, 3+ LE, > 50 WBC, 4+ bacteria. Urine culture collected and pending. CT abdomen pelvis showed moderate left-sided hydronephrosis with perinephric stranding without obstructing ureteral stone or lesion identified, 3 cm complex cyst of the left kidney, distended urinary bladder with wall thickening and mildly enlarged prostate. A Weaver catheter was placed by nursing staff. He is on ceftriaxone. Admitted to medicine service. Patient is known to the urology service, follows with Dr. Gastelum. He was last seen in January. Had plans for CT abdomen pelvis due to his recurrent UTIs. He has had 3 UTIs since December. He has been on cranberry supplements and methenamine for UTI prevention. Per notes, patient underwent TURP on 08/23/[address] Gastelum. Pathology was benign. He unfortunately failed multiple void trials and it was recommended to continue with the catheter. The catheter came out accidentally and he was voiding without issue per notes so he continued without the catheter. PVRs were acceptable. Patient is seen at bedside today. He is awake and resting in bed on arrival. No acute distress. Weaver intact and draining clear yellow urine. Patient denies flank, back, or abdominal pain. No f/c/n/v. He denies any pain or dysuria with the catheter. Allergies Allergy/AdvReac Type Severity Reaction Status Date / Time sulfamethoxazole AdvReac Mild Abdominal Verified 01/27/25 13:22 [From Bactrim] Pain trimethoprim [From Bactrim] AdvReac Mild Abdominal Verified 01/27/25 13:22 Pain Home Medications Medication Instructions Recorded Confirmed Type aspirin 81 mg tablet 0 mg PO DAILY 05/27/19 03/07/25 History naproxen sodium 220 mg capsule 220 mg PO BID PRN Pain 10/02/21 03/07/25 History (Josiah) lancets 33 gauge ([facility] #100 ea 05/12/23 01/27/25 Rx Plus Lancet) blood sugar diagnostic (Count includes the [facility] 03/17/24 01/27/25 History Ultra Test strips) simvastatin 20 mg tablet 20 mg PO QPM #90 tabs 05/23/24 03/07/25 Rx hydrochlorothiazide 12.5 mg capsule 12.5 mg PO QAM #90 caps 06/21/24 03/07/25 Rx semaglutide 1 mg/dose (4 mg/3 mL) 0 mg subcut .once weekly 08/08/24 03/07/25 History subcutaneous pen injector insulin glargine 100 unit/mL (3 105 unit (1.05 mL) subcut HS #45 mL 10/17/24 03/07/25 Rx mL) subcutaneous pen (Lantus Solostar U-100 Insulin) metoprolol succinate 25 mg 25 mg PO QAM #90 tabs 10/25/24 03/07/25 Rx tablet,extended release 24 hr blood sugar diagnostic ([facility] #100 ea 11/17/24 01/27/25 Rx Ultra Test strips) zinc oxide 10 % topical ointment 1 applic topical QID PRN skin 01/10/25 03/07/25 Rx irritation #85 grams methenamine hippurate 1 gram tablet 1 g PO BID #180 tabs 01/27/25 03/07/25 Rx gabapentin 300 mg capsule 300 mg PO BID #60 caps 01/31/25 03/07/25 Rx metformin 1,000 mg tablet 1,000 mg PO BID #60 tabs 01/31/25 03/07/25 Rx lisinopril 5 mg tablet 5 mg PO QAM #90 tabs 02/13/25 03/07/25 Rx pen needle, diabetic 29 gauge x 03/07/25 03/07/25 History 1/2" Patient History Medical History (Updated 03/07/25 @ 15:06 by KSENIA Jameson) Diabetes type 2 Arteriosclerotic cardiovascular disease Per records Poor historian Dorcas completed PAT phone interview Unsteady gait when walking "Very limited" uses a cane/walker Urinary tract infection Recurrent, taking Bactrim currently PAF (paroxysmal atrial fibrillation) Post-op atrial fibrillation 10/2013 Follows with [facility] cardio Hypertension BPH w urinary obs/LUTS GERD (gastroesophageal reflux disease) Hx of aortic valve stenosis Bioprosthetic AVR (2013) Hx of non-ST elevation myocardial infarction (NSTEMI) Entered 2013, denies Surgical History (Updated 03/07/25 @ 10:35 by Roverto Guerrero MD) Hx of transurethral resection of prostate 2012 + August 2024 Hx of cardiac catheterization History of surgery on arm As child, ? side Hx of aortic valve repair 2013 History of knee surgery R/L knee replacements (age ~54) History of back surgery Family History (Updated 03/07/25 @ 10:17 by Roverto Guerrero MD) Father , in his 70s Sepsis Mother , in her 70s Neurological disease Other No pertinent family history Denies family history of Ovarian cancer Prostate cancer Myocardial infarction Breast cancer Colorectal cancer Social History (Updated 03/07/25 @ 10:17 by Roverto Guerrero MD) Smoking Status: Never smoker Second Hand Exposure: No; Do You Dip or Chew Tobacco: No; Hx Alcohol Use: No Hx Substance Use: No Preferred Language: Japanese Communication Ability: Effective Visual Impairment: No Limitations Hearing Ability: Use of Hearing Aid Web Marketing Intern Required: No Beliefs That Will Affect Care: None marital status: Current Living Situation: Spouse Current Living Situation Comment: [place] farm current occupational status: retired current occupation: worked at [employer] How many Children do You have: 2 Feels Safe at Home: Yes Childhood Exposure to Second-Hand Smoke: No Diet: regular caffeine: Yes during the past year weight has: remained stable Dental Care, Regularly: Yes Physical Activity Frequency: Does not Exercise Seatbelt Use: always Sunscreen Use: No Do you think of yourself as: straight/heterosexual Sexual Activity: has been sexually active, but not for at least 12 months Gender Identity: Male Assistive Devices: Cane, Glasses, Hearing Aid - Bilateral, Walker and Wheelchair Review of Systems Review of Systems: All systems reviewed & are unremarkable except as noted in HPI & below Physical Exam Constitutional: no acute distress Respiratory: no respiratory distress and no labored breathing Gastrointestinal (Abdomen): Percussion/Palpation: abdomen soft; abdomen nontender Musculoskeletal: Head/Neck/Chest: normocephalic Neurologic: awake Psychiatric: Orientation: alert and cooperative Genitourinary: Weaver intact draining clear yellow urine Results & Data Vital Signs (Past 12 Hours) Vital Signs Temp Pulse Pulse Resp BP BP Pulse Ox 03/07/25 11:41 03/07/25 11:41 36.5 C 92 H 18 118/75 95 03/07/25 10:46 03/07/25 10:44 36.5 C 92 H 18 118/75 95 03/07/25 10:44 03/07/25 10:00 89 18 124/65 96 03/07/25 09:44 84 03/07/25 09:00 89 20 110/60 95 03/07/25 08:00 86 15 118/72 96 03/07/25 07:00 119/78 03/07/25 07:00 84 17 119/78 96 03/07/25 06:57 86 17 03/07/25 06:42 88 21 03/07/25 06:30 88 17 122/58 L 95 03/07/25 06:06 82 19 03/07/25 05:48 119/68 03/07/25 05:30 84 17 105/68 95 03/07/25 04:32 36.7 C 105 H 19 120/68 92 03/07/25 04:32 105 H Pulse Ox O2 Del Method O2 Del Method O2 Flow Rate 03/07/25 11:41 Room Air 03/07/25 11:41 Room Air 03/07/25 10:46 Room Air 03/07/25 10:44 Room Air 03/07/25 10:44 95 Room Air 0 03/07/25 10:00 Room Air 03/07/25 09:44 03/07/25 09:00 Room Air 03/07/25 08:00 Room Air 03/07/25 07:00 03/07/25 07:00 Room Air 03/07/25 06:57 03/07/25 06:42 03/07/25 06:30 Room Air 03/07/25 06:06 03/07/25 05:48 03/07/25 05:30 Room Air 03/07/25 04:32 Room Air 03/07/25 04:32 PG Care Time/CCT Total # of Minutes Spent Total Time Spent with Patient: Total time spent is greater than 50% in coordination of care (as documented) at patient's floor/unit and/or counseling patient: Coding Level of Care Code 32924 INT INP/OBS CARE 2/55MIN Diagnoses Urinary tract infection N39.0 Hydronephrosis, left N13.30 BPH with obstruction/lower urinary tract symptoms N40.1; N13.8
[2025-03-07] MEDS: LANTUS PER UNIT CHARGE SC SCH (20:20)
[2025-03-07] MEDS ORDERED: NON-FORMULARY MEDICATION (Insulin Glargine [Lantus Solostar U-100 Insulin] 100 unit/mL (3 SQ SCH (21:00)
[2025-03-07] MEDS ORDERED: SIMVASTATIN 20 MG TAB PO SCH (21:00)
[2025-03-08] MEDS: cefTRIAXone SODIUM 2,000 MG/50 ML BAG IV SCH (06:26)
[2025-03-08 07:22] LABS: Anion Gap 8.0 (3-11); Calcium 8.4 mg/dl (8.6-10.3); Carbon Dioxide 23.0 mmol/L (21-32); Chloride 102.0 mmol/L (98-107); Potassium 4.3 mmol/L (3.5-5.1); Sodium 133.0 mmol/L (136-145)
[2025-03-08 07:31] LABS: Blood Urea Nitrogen 15.0 mg/dl (6-23); Creatinine Clr Calc Pharmacy 62.2 ml/min; Glucose 321.0 mg/dl (70-99(Fasting))
[2025-03-08 07:36] LABS: Hemoglobin A1C 10.0 % (4.5-5.6)
[2025-03-08 07:41] LABS: Thyroid Stimulating Hormone 1.124 uIu/ml (0.300-4.500)
--- NOTE | 2025-03-08 08:07 | Hospitalist Progress Note ---
Date of Service March 08, 2025 Assessment & Plan (1) Urinary tract infection: (2) Acute metabolic encephalopathy: (3) Decubitus ulcer of right buttock: (4) Decubitus ulcer of left buttock: (5) Uncontrolled diabetes mellitus, with long-term current use of insulin: Plan 84yo male with history of BPH s/p TURP 08/[address] Missael Gastelum (also had TURP in 2013), recurrent UTIs, HTN, T2DM, buttocks decubitus ulcer, GERD, h/o bioprosthetic aortic valve, and hyperlipidemia. The patient presented from home with his due to a fall the evening before admission, progressive weakness & ambulatory dysfunction, confusion and memory difficulties, concern for UTI, and overall failure to thrive. #urinary tract infection, left sided hydronephrosis without obstructing stone #BPH with TURP in 08/2024, urinary incontinence -continue ceftriaxone pending cultures -reviewed recs in urology consult - no urological intervention at this time, reviewed CT abdomen/pelvis #acute metabolic encephalopathy - -likely due to UTI and seems to have improved. cognitive baseline unclear -TSH wnl, B12 low -avoid sedatives -preserve sleep-wake cycle, melatonin HS, etc. #B12 deficiency - 136, may be related to metformin -1000 mg IM daily x 7 days then decrease to weekly -follow up with primary care #HTN - -cont meto succinate 25mg daily -resume lisinopril -hold HCTZ #?RLL pneumonia on chest x-ray - ruled out based on CT -personally reviewed chest CT films which do image the right base and there are no changes concerning for pneumonia #uncontrolled T2DM / hyperglycemia A1c 10 -BG 300s this am after glargine 50u last night. Add 25u qAM. Home glargine 105u HS. -novolog SSI - increased CF, CR based on total outpatient insulin dose -BSGs ac/hs -hold metformin #hyperlipidemia - -cont statin -CK minimally elevated related to his fall #b/l buttock decubitus ulcers - -wound care consult requested -currently has hernandez -frequent turning, barrier methods, etc. #?balanitis with severe scrotal irritation - -likely due to urinary incontinence & use of Depends adult diapers -nystatin powder TID to this region #DVT proph - -lovenox 40mg daily PT, OT evals requested. 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 MA reports extremely unsteady and needed a lot of help to transfer to commode Admission and Anticipated Discharge Date Admission Date: March 07, 2025 Subjective Awake and alert, seems confused/forgetful, sitting on commode, follows commands and answers direct questions denies abdominal pain, dysuria, shortness of breath/cough, chest pain Physical Exam Physical Exam: Last 24h vitals reviewed GEN: no acute distress, sitting on commode HEENT: pupils equal, sclerae anicteric, moist MM RESP: normal WOB, CTAB CV: reg no mrg ABD: soft/nt/nd +BT : hernandez with yellow urine SKIN: warm and dry, no generalized rashes NEURO: AOx person, place, and not fully to situation. Face symmetric, speech normal, moves 4 ext spontaneously and equally Results & Data Results & Data Vital Signs (Past 12 Hours) Vital Signs Temp Pulse Pulse Resp BP Pulse Ox O2 Del Method 03/08/25 07:42 36.4 C L 97 H 18 112/75 92 Room Air 03/08/25 07:24 98 H 03/08/25 02:54 36.6 C 96 H 20 112/72 92 Room Air 03/08/25 02:41 87 03/07/25 22:55 36.7 C 82 18 116/73 92 Room Air 03/07/25 22:30 Room Air PG Care Time/CCT Total # of Minutes Spent Total Time Spent with Patient: Total time spent is greater than 50% in coordination of care (as documented) at patient's floor/unit and/or counseling patient: Coding Level of Care Code 76621 SUB INP/OBS CARE 3/50MIN Diagnoses Urinary tract infection N39.0 Acute metabolic encephalopathy G93.41 Decubitus ulcer of right buttock L89.319 Decubitus ulcer of left buttock L89.329 Uncontrolled diabetes mellitus, with long-term current use of insulin
[2025-03-08] MEDS: LANTUS PER UNIT CHARGE SQ SCH (08:58)
[2025-03-08] MEDS ORDERED: LANTUS PER UNIT CHARGE SQ SCH (09:00)
[2025-03-08] MEDS: ENOXAPARIN INJ 40 MG/0.4 ML SYR SQ SCH (09:04)
[2025-03-08] MEDS: CYANOCOBALAMIN 1000 MCG/ML VIAL IM SCH (09:22)
--- NOTE | 2025-03-08 11:51 | Urology Progress Note ---
Date of Service March 08, 2025 Assessment & Plan (1) UTI (urinary tract infection): (2) Hydronephrosis, left: (3) BPH with obstruction/lower urinary tract symptoms: Plan 84yo male with a hx of BPH s/p TURP 08/2024 and recurrent UTI admitted with progressive weakness, confusion, and concern for UTI. Pt afebrile with stable vitals at present. Creatinine stable. Urine culture pending. He is on Ceftriaxone. Weaver catheter draining appropriately - urine is clear yellow. CT abd pelvis showed moderate left-sided hydronephrosis without obstructing stone or lesion possibly due to outlet obstruction, reflux, infection or other. For now, would recommend continuing antibiotic therapy and tailoring per culture sensitivities. Continue supportive care. Maintain Weaver catheter for bladder decompression. We can arrange a void trial in approximately 1 week in the urology clinic or he can maintain the catheter until his follow-up on 03/29. No plan for intervention at this time. We will hold off ureteral stent placement for now, however if he fails to improve clinically, could revisit possibility of stent placement. Will plan for outpatient follow-up with as scheduled on 03/29 for cystoscopy. Urology will follow. Admission and Anticipated Discharge Date Admission Date: March 07, 2025 Subjective Pt seen at bedside today Awake and sitting in chair on arrival No acute distress Denies pain. No f/c/n/v. Weaver draining clear yellow urine w/sediment. Review of Systems Constitutional: as per Subjective / HPI Genitourinary: + as per Subjective / HPI Physical Exam Constitutional: no acute distress Respiratory: no respiratory distress and no labored breathing Neurologic: awake Psychiatric: Orientation: alert and cooperative Genitourinary: Weaver intact draining clear yellow urine Results & Data Vital Signs (Past 12 Hours) Vital Signs Temp Pulse Pulse Resp BP Pulse Ox O2 Del Method 03/08/25 07:42 36.4 C L 97 H 18 112/75 92 Room Air 03/08/25 07:24 98 H 03/08/25 02:54 36.6 C 96 H 20 112/72 92 Room Air 03/08/25 02:41 87 03/07/25 22:55 36.7 C 82 18 116/73 92 Room Air 03/07/25 22:30 Room Air PG Care Time/CCT Total # of Minutes Spent Total Time Spent with Patient: Total time spent is greater than 50% in coordination of care (as documented) at patient's floor/unit and/or counseling patient: Coding Level of Care Code 60850 SUB INP/OBS CARE 235MIN Diagnoses UTI (urinary tract infection) N39.0 Urinary tract infection type: acute cystitis Hydronephrosis, left N13.30 BPH with obstruction/lower urinary tract symptoms N40.1; N13.8 (1) UTI (urinary tract infection) Urinary tract infection type: acute cystitis
[2025-03-08] MEDS: GABAPENTIN 100 MG CAP PO SCH (20:43)
[2025-03-09] MEDS: LANTUS PER UNIT CHARGE SQ SCH (08:47)
--- NOTE | 2025-03-09 12:09 | Urology Progress Note ---
Date of Service March 09, 2025 Assessment & Plan (1) UTI (urinary tract infection): (2) Hydronephrosis, left: (3) BPH with obstruction/lower urinary tract symptoms: Plan 84yo male with a hx of BPH s/p TURP 08/2024 and recurrent UTI admitted with progressive weakness, confusion, and concern for UTI. Pt afebrile with stable vitals at present. No reported pain. Urine culture grew Strep agalactiae. He is on Cephalexin. Weaver catheter draining appropriately - urine is clear yellow. Plan to maintain Weaver catheter until f/u with urology. Continue antibiotics. Will plan for outpatient follow-up with as scheduled on 03/29 for cystoscopy. Urology will sign-off. Please call with any questions/concerns. Admission and Anticipated Discharge Date Admission Date: March 07, 2025 Subjective Pt seen at bedside today. NAD. Denies pain. Denies f/c/n/v. Weaver draining clear yellow urine w/sediment. Review of Systems Constitutional: as per Subjective / HPI Genitourinary: + as per Subjective / HPI Physical Exam Constitutional: no acute distress Respiratory: no respiratory distress and no labored breathing Neurologic: moves all extremities and awake Psychiatric: A+Ox3, euthymic affect Genitourinary: Weaver intact Results & Data Vital Signs (Past 12 Hours) Vital Signs Temp Pulse Pulse Resp BP Pulse Ox O2 Del Method 03/09/25 11:31 36.5 C 108 H 21 116/78 95 Room Air 03/09/25 08:45 Room Air 03/09/25 08:00 36.5 C 105 H 21 105/69 95 Room Air 03/09/25 07:23 101 H 03/09/25 03:28 36.6 C 94 H 18 114/72 96 Room Air PG Care Time/CCT Total # of Minutes Spent Total Time Spent with Patient: Total time spent is greater than 50% in coordination of care (as documented) at patient's floor/unit and/or counseling patient: Coding Level of Care Code 17702 SUB INP/OBS CARE 2/35MIN Diagnoses UTI (urinary tract infection) N39.0 Urinary tract infection type: acute cystitis Hydronephrosis, left N13.30 BPH with obstruction/lower urinary tract symptoms N40.1; N13.8 (1) UTI (urinary tract infection) Urinary tract infection type: acute cystitis
[2025-03-09] MEDS: POLYETHYLENE (MIRALAX) 17 GM PACK PO PRN (12:15)
--- NOTE | 2025-03-09 14:53 | Hospitalist Progress Note ---
Date of Service March 09, 2025 Assessment & Plan (1) Urinary tract infection: (2) Acute metabolic encephalopathy: (3) Decubitus ulcer of right buttock: (4) Decubitus ulcer of left buttock: (5) Uncontrolled diabetes mellitus, with long-term current use of insulin: Plan 84yo male with history of BPH s/p TURP 08/[address] Missael Gastelum (also had TURP in 2012), recurrent UTIs, HTN, T2DM, buttocks decubitus ulcer, GERD, h/o bioprosthetic aortic valve, and hyperlipidemia. The patient presented from home with his due to a fall the evening before admission, progressive weakness & ambulatory dysfunction, confusion and memory difficulties, concern for UTI, and overall failure to thrive. # group B strep urinary tract infection, left sided hydronephrosis without obstructing stone #BPH with TURP in 08/2024, urinary incontinence - changed antibiotics to oral Keflex to cover group B strep UTI, 10-14-day course -reviewed recs in urology consult - maintain Hernandez catheter until follow-up with urology, has upcoming scheduled cystoscopy on 03/[address] Gastelum #acute metabolic encephalopathy - -likely due to UTI and seems to have improved and possibly resolved. His reports that he is extremely hard of hearing and she is having trouble getting his hearing aids repaired/adjusted -TSH wnl, B12 low -avoid sedatives -preserve sleep-wake cycle, melatonin HS, etc. #B12 deficiency - 136, may be related to metformin -1000 mg IM daily x 7 days then decrease to weekly -follow up with primary care #HTN - normotensive at this time -cont meto succinate 25mg daily -resumed lisinopril -hold HCTZ #uncontrolled T2DM / hyperglycemia A1c 10 - blood glucoses a little better than yesterday but remain in the mid 300s despite successive increases in insulins. I think his outpatient glargine is 95 units at bedtime. He is also on metformin and semaglutide - increase glargine to 30 units in a.m. 50 units at bedtime -novolog SSI - increased CF again today, CR is 4 - resume his metformin 1000 mg twice daily, he is medically stable and taking good p.o. no procedures are planned -BSGs ac/hs #hyperlipidemia - -cont statin -CK minimally elevated related to his fall #b/l buttock decubitus ulcers - -wound care consult requested -currently has hernandez -frequent turning, barrier methods, etc. 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 I discussed with the care companion today. Admission and Anticipated Discharge Date Admission Date: March 07, 2025 Spencer Cuellar is doing better today with respect to his mobility although still significantly impaired from baseline I watched him on the edge of the bed with PT stand up with walker and transfer to chair and then brief walk out into the hallway. Appears unsteady his is in the room and gives additional history she reports that he has had recurrent UTIs and each time it is a setback significantly impairing his mentation his functional status and his wound healing she thinks that he did better during the interval when he had a chronic Hernandez catheter for several months as he did not have UTI during that time Physical Exam Physical Exam: Last 24h vitals reviewed GEN: frail-appearing sitting on the edge of the bed HEENT: pupils equal, sclerae anicteric, moist MM, very hard of hearing RESP: normal WOB, CTAB except slight bibasilar crackles CV: reg no mrg ABD: soft/nt/nd +BT : hernandez with yellow urine SKIN: warm and dry, no generalized rashes extremities: Warm and well-perfused no edema NEURO: AOx person, place, and not fully to situation. Face symmetric, speech normal, moves 4 ext spontaneously and equally. wide-based unsteady gait with walker Results & Data Results & Data Vital Signs (Past 12 Hours) Vital Signs Temp Pulse Pulse Resp BP Pulse Ox O2 Del Method 03/09/25 11:31 36.5 C 108 H 21 116/78 95 Room Air 03/09/25 08:45 Room Air 03/09/25 08:00 36.5 C 105 H 21 105/69 95 Room Air 03/09/25 07:23 101 H 03/09/25 03:28 36.6 C 94 H 18 114/72 96 Room Air PG Care Time/CCT Total # of Minutes Spent Total Time Spent with Patient: Total time spent is greater than 50% in coordination of care (as documented) at patient's floor/unit and/or counseling patient: Coding Level of Care Code 05629 SUB INP/OBS CARE 2/35MIN Diagnoses Urinary tract infection N39.0 Acute metabolic encephalopathy G93.41 Decubitus ulcer of right buttock L89.319 Decubitus ulcer of left buttock L89.329 Uncontrolled diabetes mellitus, with long-term current use of insulin
[2025-03-09 23:02] VITALS: RESP 18
[2025-03-10 06:41] LABS: Hematocrit (blood only) 37.6 % (42.0-52.0); Hemoglobin 12.7 g/dl (14.0-18.0); Mean Corpuscular Hemoglobin 29.9 pg (25.0-34.0); Mean Corpuscular Volume 88.5 fL (80.0-100.0); Platelet Count 258 K/uL (130-400); RDW Standard Deviation 39.3 fL (36.4-46.3); Red Blood Count 4.25 M/uL (4.70-6.10); White Blood Count 9.73 K/ul (4.8-10.8)
[2025-03-10 07:02] LABS: Anion Gap 7.0 (3-11); Blood Urea Nitrogen 20.0 mg/dl (6-23); Calcium 8.9 mg/dl (8.6-10.3); Carbon Dioxide 25.0 mmol/L (21-32); Chloride 101.0 mmol/L (98-107); Creatinine Clr Calc Pharmacy 62.2 ml/min; Glucose 259.0 mg/dl (70-99(Fasting)); Potassium 4.0 mmol/L (3.5-5.1); Sodium 133.0 mmol/L (136-145)
--- NOTE | 2025-03-10 07:53 | Discharge Summary ---
Discharge Summary Date of Service March 10, 2025 Principal Dx & Hospital Course #1 = Principal Diagnosis (1) Urinary tract infection: (2) Acute metabolic encephalopathy: (3) Decubitus ulcer of right buttock: (4) Decubitus ulcer of left buttock: (5) Uncontrolled diabetes mellitus, with long-term current use of insulin: Plan 84yo male with history of BPH s/p TURP 08/[address] Missael Gastelum (also had TURP in 2012), recurrent UTIs, HTN, T2DM, buttocks decubitus ulcer, GERD, h/o bioprosthetic aortic valve, and hyperlipidemia. The patient presented from home with his due to a fall the evening before admission, progressive weakness & ambulatory dysfunction, confusion and memory difficulties, concern for UTI, and overall failure to thrive. Recurrent UTIs have been a serious problem recently, with various organisms - GB S, Morganella, Proteus. His feels that he had less problem when he had a catheter - did not have UTI for that interval. # group B strep urinary tract infection, left sided hydronephrosis without obstructing stone #BPH with TURP in 08/2024, urinary incontinence -initially treated with ceftriaxone, changed antibiotics to oral Keflex to cover group B strep UTI, 10 additional days will complete 14d total course -urology consulted, recommended - maintain Hernandez catheter until follow-up with urology, has upcoming scheduled cystoscopy on 03/[address] Gastelum -continue methenamine #acute metabolic encephalopathy - -related to UTI and resolved or nearly resolved. His reports that he is extremely hard of hearing and she is having trouble getting his hearing aids repaired/adjusted -TSH wnl, B12 low -avoid sedatives -decreased gabapentin, see below #B12 deficiency - 136, may be related to metformin -1000 mg IM daily x 7 days then decrease to weekly then ongoing replacement which can probably be oral. IM doses given 03/08, 03/09, 03/10 -follow up with primary care #HTN - normotensive at this time, has had mild sinus tachycardia -cont meto succinate 25mg daily -resumed lisinopril -HCTZ stopped #uncontrolled T2DM / hyperglycemia I think his outpatient glargine is 95 units at bedtime. He is also on metformin and semaglutide A1c 10 and was initially difficult to control in the hospital, improved to 280s after successive increases in insulin doses and resumption of metformin -currently glargine 40 units in a.m. 50 units at bedtime -novolog SSI -has needed 11 - 32 units premeal the past 48h - resumed his metformin 1000 mg twice daily - may need further increases in insulin if semaglutide not being given at [facility] -BSGs ac/hs #hyperlipidemia - -cont statin -CK minimally elevated related to his fall #b/l stage 2 buttock decubitus ulcers present on admission- -wound care consulted - continue wound care -currently has hernandez -frequent turning, barrier methods, etc. #balanitis with severe scrotal irritation - -likely due to urinary incontinence & use of Depends adult diapers -nystatin powder TID to this region Ambulatory dysfunction Fell at home [employer]. Initially extremely unsteady and needed a lot of help to transfer to commode, improved somewhat I have dose reduced his gabapentin from 300 twice daily down to 200 mg twice daily which may help with his gait/unsteadiness - if no change in symptoms would reduce further and potentially taper off PT, OT april recommended rehab, discharging to [facility] Notes For Next Care Provider GBS UTI B12 deficient keep hernandez until urology follow up Medication Changes From Visit reduced gabapentin keflex for 10 days adjusted insulins B12 IM Admission HPI Per Admitting Provider 84yo male with history of BPH s/p TURP 08/[address] Missael Gastelum (also had TURP in 2012), recurrent UTIs, HTN, T2DM, buttocks decubitus ulcer, GERD, h/o bioprosthetic aortic valve, and hyperlipidemia. The patient presented from home with his due to a fall last evening, progressive weakness & ambulatory dysfunction, confusion and memory difficulties, concern for UTI, and overall failure to thrive. Most of the history was obtained from the patient's as the patient offered little in the way of history. About 3 weeks ago many of his symptoms started and have simply progressed over that time. Last evening he slid out of his lift chair onto the floor. There were no apparent injuries. His does state that he continues to drink fairly well day-to-day at home and is eating. No recent fevers or rigors. His last UTI was in January. He has had 3 UTIs since December. He was last seen by [facility] in January. They advised repeat CT abd/pelvis due to the recurrent UTIs. The patient did have a hernandez catheter this spring for about 3 months but this was successfully removed and he has been spontaneously voiding since then. However, he is incontinent of urine and wears Depends on a daily basis. With respect to the buttock decubitus ulcers - he has had these for at least 4-6 weeks. He did complain to me of pain from the ulcers during my admission assessment. Discharge Exam Last 24h vitals reviewed GEN: looks much better, awake/alert resting in bed HEENT: pupils equal, sclerae anicteric, moist MM, very hard of hearing RESP: normal WOB, CTAB CV: reg no mrg ABD: soft/nt/nd +BT : hernandez with yellow urine SKIN: warm and dry, no generalized rashes extremities: Warm and well-perfused no edema NEURO: AOx person, place, and to situation. Face symmetric, speech normal, moves 4 ext spontaneously and equally. Discharge Plan Discharge Items Patient Disposition: Transfer Usp Fac Reason For Visit: ACUTE UTI, METABLIC ENCEPHALOPATHY, FALL Discharge Diagnosis: UTI, Acute metabolic encephalopathy Condition on Discharge: Fair Activity: Resume your previous activity Weightbearing: Full weightbearing Non-emergency contact: Primary Care Provider and Urologist Call non-emergency contact if: you have any medication questions, your symptoms worsen and you have a fever Follow-up/Referrals: Ana Luisa Faustin MD [Primary Care Provider] - Missael Gastelum MD [Physician] - 03/29/25 10:45 am Diet: Carb Consistent or DM2 Addtl Attending Provider Instructions: PT and OT evaluate and treat Continue wound care for bilateral buttock stage 2 pressure ulcers, pressure offloading, turning Diabetic diet Check blood glucose qAC and HS Glargine plus aspart/lispro premeal insulin Continue keflex for group B strep UTI for 10 days Leave hernandez in place until urology follow up Vitamin B12 deficiency - needs four more daily IM doses, then decrease to weekly Pending Studies at Discharge: No Stand-Alone Forms: My [facility] Skilled Items Patient informed of condition?: Yes DNR: No Discharge Level of Care: Skilled Communicable Disease: No Discharge Prognosis: Improving Lines: None Urinary Catheter: Yes Medications and DC Order Prescriptions: New nystatin [Nystop] 100,000 unit/gram Powder 1 applic EXT TID Qty: 0 0RF cyanocobalamin (vitamin B-12) 1,000 mcg/mL Solution 1,000 mcg IM QAM Qty: 0 0RF gabapentin 100 mg Capsule 200 mg PO BID Qty: 0 0RF acetaminophen 325 mg Tablet 650 mg PO Q4H PRNQty: 0 0RF insulin glargine [Lantus U-100 Insulin] 100 unit/mL Solution 50 unit SC HS Qty: 0 0RF cephalexin 500 mg Capsule 500 mg PO BID Qty: 20 0RF polyethylene glycol 3350 [Miralax] 17 gram Powder In Packet 17 g PO DAILY PRNQty: 0 0RF insulin glargine [Lantus U-100 Insulin] 100 unit/mL Solution 40 unit subcut QAM Qty: 0 0RF Continued (DME) lancets [OneTouch Delica Plus Lancet] 33 gauge misc See Rx Instructions .Route Qty: 100 2RF Rx Instructions: Test once a day E11.9 simvastatin 20 mg tablet 20 mg PO QPM Qty: 90 3RF metoprolol succinate 25 mg tablet extended release 24 hr 25 mg PO QAM Qty: 90 3RF metformin 1,000 mg tablet 1,000 mg PO BID Qty: 60 5RF lisinopril 5 mg tablet 5 mg PO QAM Qty: 90 3RF aspirin 81 mg tablet 0 mg PO DAILY Patient Comments: 03/07- otc unable to verify 81mg dose (DME) OneTouch Ultra Test Strip See Rx Instructions .Route Rx Instructions: test blood sugar TWICE daily zinc oxide 10 % ointment 1 applic topical QID PRN (Reason: skin irritation) Qty: 85 0RF Patient Comments: 03/07- otc unable to verify methenamine hippurate 1 gram tablet 1 g PO BID Qty: 180 1RF (DME) OneTouch Ultra Test Strip See Rx Instructions .Route Qty: 100 11RF Rx Instructions: use to check blood sugar 2x daily semaglutide 1 mg/dose (4 mg/3 mL) pen injector 0 mg subcut .once weekly Patient Comments: 03/07- no fill history unable to verify 5mg dose (DME) pen needle, diabetic 29 gauge x 1/2" Needle MISCELLANEOUS Discontinued naproxen sodium [Aleve] 220 mg capsule 220 mg PO BID PRN (Reason: Pain) Patient Comments: 03/07- otc unable to verify hydrochlorothiazide 12.5 mg capsule 12.5 mg PO QAM Qty: 90 3RF insulin glargine [Lantus Solostar U-100 Insulin] 100 unit/mL (3 mL) insulin pen 105 unit SQ HS Qty: 45 5RF Rx Instructions: per task patient was to increase to 95 units daily. gabapentin 300 mg capsule 300 mg PO BID Qty: 60 5RF Discharge Orders: Discharge Order (Routine); Ordered 03/10/25 Ordered By: Suellen Ko Admission Data Admit Date/Time: 03/07/25 08:57 Attending Provider: Suellen Ko Admit Provider: Roverto Guerrero Primary Care Provider: Ana Luisa Faustin Other Providers: Roverto Guerrero; Ambrocio Costa; [facility] Stay Data Consultations 03/07/25 06:42 ED Decision to Admit Stat 03/07/25 12:55 Consult Urology Routine Diagnostic Imagining Performed 03/07/25 04:32 CT head/brain wo con Stat 03/07/25 08:58 CT Abd and Pelvis [CT abd pelvis IV con only] Routine Discharge Instructions Given to Patient (Per Discharging Provider) PT and OT evaluate and treat Continue wound care for bilateral buttock stage 2 pressure ulcers, pressure offloading, turning Diabetic diet Check blood glucose qAC and HS Glargine plus aspart/lispro premeal insulin Continue keflex for group B strep UTI for 10 days Leave hernandez in place until urology follow up Vitamin B12 deficiency - needs four more daily IM doses, then decrease to weekly Total Time Total Time Spent Total Time Spent (In Minutes): I personally spent: 45 minutes today on clinical care activities including: reviewing chart notes and vital signs discussion with grounds caretaker examining and counseling the patient writing orders writing prescriptions, discharge instructions documentation Coding Level of Care Code 74829 INP/OBS DISCH >30 MIN Diagnoses Urinary tract infection N39.0 Acute metabolic encephalopathy G93.41 Decubitus ulcer of right buttock L89.319 Decubitus ulcer of left buttock L89.329 Uncontrolled diabetes mellitus, with long-term current use of insulin
[2025-03-10] MEDS: LANTUS PER UNIT CHARGE SQ SCH (09:11)
[2025-03-10] MEDS: MAGNESIUM HYDROXIDE SUSP 30 ML UDC PO ONE (10:16)
[2025-03-10 11:34] VITALS: BP 108/70; TEMP 97.2; O2SAT 92
[2025-03-10 14:56] VITALS: PULSE 110
--- NOTE | 2025-03-11 07:08 | Electrocardiogram Report ---
Test Reason : Blood Pressure : */* mmHG Vent. Rate : 105 BPM Atrial Rate : 105 BPM P-R Int : 206 ms QRS Dur : 140 ms QT Int : 362 ms P-R-T Axes : 47 99 52 degrees QTcB Int : 478 ms Sinus tachycardia Right bundle branch block Abnormal ECG When compared with ECG of 15-Aug-2024 08:21, No significant change Confirmed by Kong Hopson ([id number]) on 03/11/2025 7:08:14 AM Referred By: REFERRED SELF Confirmed By: Kong Hopson
== END 2025-03-10 15:19 | DRG 689 ==
LOC: ED 04:27 → EDINP 08:57 → SUATTDRO 08:57 → 2N 10:46